=== PATIENT | male | born 1960 ===

== ENCOUNTER 2017-05-26 10:39 | Inpatient (IN) | payer OTHER ==
[2017-05-26 10:40] VITALS: BMI 28.3
--- NOTE | 2017-05-26 11:28 | C.PDOC ---
History Of Present Illness 56 year old male with PMHx of PE on coumadin presents to the ED for evaluation of right sided swelling for the past 3 days. Patient reports he had a kidney transplant 6 months ago after which which he had a PE. Patient denies any CP, SOB, weakness, numbness, urinary symptoms, back pain, headache, dizziness. Time Seen by Provider: 05/26/17 11:14 Chief Complaint (Nursing): Medical Clearance History Per: Patient History/Exam Limitations: no limitations Onset/Duration Of Symptoms: Days Current Symptoms Are (Timing): Still Present Recent travel outside of the [place]: No Additional History Per: Patient Past Medical History Reviewed: Historical Data, Nursing Documentation, Vital Signs Vital Signs: Last Vital Signs Temp 98.4 F 05/26/17 12:39 Pulse 77 05/26/17 12:39 Resp 18 05/26/17 12:39 BP 146/69 05/26/17 12:39 Pulse Ox 99 05/26/17 14:02 - Medical History PMH: Anemia, Depression, HTN, Hyperlipidemia, Hyperthyroidism, Hypothyroidism, Multiple Sclerosis, Peripheral Edema (before dialysis started), End Stage Renal Disease, Chronic Kidney Disease, Seizures Denies: Sexually Transmitted Disease Surgical History: Endoscopy - [facility] Procedures BYPASS R BRACH ART TO UP ARM VEIN W AUTOL VN, OPEN (01/14/16) DIALYSIS ARTERIOVENOSTOM (10/11/14) DILATION OF LEFT BASILIC VEIN, PERCUTANEOUS APPROACH (01/26/16) DILATION OF LEFT BRACHIAL ARTERY, PERCUTANEOUS APPROACH (01/14/16) HEMODIALYSIS (10/11/14) INSERTION OF INFUSION DEV INTO INF VENA CAVA, PERC APPROACH (01/26/16) INSERTION OF INFUSION DEV INTO SUP VENA CAVA, PERC APPROACH (03/18/16) PACKED CELL TRANSFUSION (10/11/14) PERFORMANCE OF URINARY FILTRATION, MULTIPLE (01/14/16) PERFORMANCE OF URINARY FILTRATION, SINGLE (03/18/16) REVISION OF AUTOL SUB IN UP VEIN, OPEN APPROACH (03/18/16) VACCINATION NEC (10/11/14) VENOUS CATHETERIZATION FOR RENAL DIALYSIS (10/11/14) Family History: States: Unknown Family Hx - Social History Hx Tobacco Use: No Hx Alcohol Use: No Hx Substance Use: No - Immunization History Hx Tetanus Toxoid Vaccination: No Hx Influenza Vaccination: No Hx Pneumococcal Vaccination: No Review Of Systems Constitutional: Positive for: Other (Bpdy swelling right side). Negative for: Fever, Chills Cardiovascular: Negative for: Chest Pain Respiratory: Negative for: Cough, Shortness of Breath Gastrointestinal: Negative for: Nausea, Vomiting, Abdominal Pain Genitourinary: Negative for: Dysuria, Hematuria Musculoskeletal: Negative for: Back Pain Skin: Negative for: Rash Neurological: Negative for: Weakness, Numbness, Headache Physical Exam - Physical Exam Appears: Non-toxic, No Acute Distress Skin: Normal Color, Warm, Dry Head: Atraumatic, Normacephalic Eye(s): bilateral: Normal Inspection Nose: No Discharge, No Deformity Oral Mucosa: Moist Neck: Normal ROM, Supple Chest: Symmetrical Cardiovascular: Rhythm Regular, No Murmur Respiratory: Normal Breath Sounds, No Rales, No Rhonchi, No Wheezing Gastrointestinal/Abdominal: Soft, No Tenderness, No Guarding, No Rebound Extremity: Normal ROM, No Tenderness, No Calf Tenderness, Capillary Refill (< 2 seconds), No Deformity, Swelling (+2 right leg pitting edema, +1 pitting edema right arm) Pulses: Left Radial: Normal, Right Radial: Normal, Left Dorsalis Pedis: Normal, Right Dorsalis Pedis: Normal Neurological/Psych: Oriented x3, Normal Speech, Normal Cognition Gait: Steady ED Course And Treatment - Laboratory Results Result Diagrams: 05/26/17 11:44 05/26/17 11:44 ECG: Interpreted By Me, Viewed By Me ECG Rhythm: Sinus Rhythm, R BBB (incomplete) Interpretation Of ECG: NSR 78 BPM with incomplete RBBB, normal axis, no ST or T wave abnormalities Rate From EC O2 Sat by Pulse Oximetry: 99 (On RA) Pulse Ox Interpretation: Normal - Radiology CXR: Viewed By Me, Read By Radiologist CXR Interpretation: Yes: Other (No acute findings identified.) Medical Decision Making Medical Decision Making: Impression : edema Plan: * EKG * Labs * CXR * UA * Venous Duplex Spoke with doctor at [facility] ([phone]) transplant center regarding the patient's case, the physician agreed with the work up will follow labs and see results. Spoke with the transplant center again and the doctor there agreed with the patient staying in the hospital, patient will be admitted under Dr. Lazaro Silva. Disposition Discussed With : Chidi Silva Doctor Will See Patient In The: Hospital Counseled Patient/Family Regarding: Studies Performed, Diagnosis - Disposition Disposition: HOSPITALIZED Disposition Time: 14:04 Condition: FAIR Forms: [facility] ([place]) - Clinical Impression Clinical Impression: Hyponatremia - Scribe Statement The provider has reviewed the documentation as recorded by the Scribe Remi Trevino All medical record entries made by the Scribe were at my direction and personally dictated by me. I have reviewed the chart and agree that the record accurately reflects my personal performance of the history, physical exam, medical decision making, and the department course for this patient. I have also personally directed, reviewed, and agree with the discharge instructions and disposition.
[2017-05-26 11:52] LABS: BASO % 0.4 % (0.0-2.0); EOS % 1.3 % (0.0-4.0); HEMOGLOBIN 10.3 g/dL (12.0-18.0); LYMPH # 0.6 K/uL (1.0-4.3); LYMPH % 15.3 % (20.0-40.0); MEAN CELL VOLUME 85.8 fL (80.0-94.0); MEAN CORPUSCULAR HEMOGLOBIN 31.1 pg (27.0-31.0); MEAN CORPUSCULAR HGB CONC 36.2 g/dL (33.0-37.0); MEAN PLATELET VOLUME 6.5 fL (7.2-11.7); MONO # 0.6 K/uL (0.0-0.8); MONO % 16.5 % (0.0-10.0); NEUT # 2.5 K/uL (1.8-7.0); NEUT % 66.5 % (50.0-75.0); NRBC % 0.1 % (0.0-2.0); RBC 3.33 Mil/uL (4.40-5.90); RED CELL DISTRIBUTION WIDTH 14.5 % (11.5-14.5); WHITE BLOOD COUNT 3.8 K/uL (4.8-10.8)
--- NOTE | 2017-05-26 11:59 | RAD ---
HISTORY: chest pain COMPARISON: Chest x-ray performed 01/14/16 TECHNIQUE: Chest PA and lateral FINDINGS: Examination limited by habitus. LUNGS: Biapical pleural thickening. No focal consolidation. Please note that chest x-ray has limited sensitivity for the detection of pulmonary masses. PLEURA: No significant pleural effusion identified. No definite pneumothorax . CARDIOVASCULAR: The cardiomediastinal silhouette appears within normal limits of size. OSSEOUS STRUCTURES: No acute osseous abnormality identified. VISUALIZED UPPER ABDOMEN: Unremarkable. OTHER FINDINGS: None. IMPRESSION: No acute findings identified. See above.
[2017-05-26 12:00] LABS: INR 1.5
[2017-05-26 12:12] LABS: B-TYPE NATRIURETIC PEPTIDE 683 pg/mL (0-900)
[2017-05-26 12:27] LABS: URINE BILIRUBIN NEGATIVE (NEGATIVE); URINE BLOOD NEGATIVE (NEGATIVE); URINE CLARITY Clear (Clear); URINE COLOR Yellow (YELLOW); URINE GLUCOSE (UA) NORMAL (Normal); URINE LEUKOCYTE ESTERASE TRACE Leu/uL (Negative); URINE NITRATE NEGATIVE (NEGATIVE); URINE PROTEIN 1+ mg/dL (NEGATIVE); URINE UROBILINOGEN NORMAL mg/dL (0.2-1.0)
[2017-05-26 12:56] LABS: ALB/GLOB RATIO 1.3 (1.0-2.1); ALBUMIN 4.2 g/dL (3.5-5.0); ALT/SGPT 56 U/L (21-72); AST/SGOT 40 U/L (17-59); BLOOD UREA NITROGEN 15 mg/dL (9-20); GFR AFRICAN-AMERICAN > 60; GFR NON-AFRICAN AMERICAN > 60
[2017-05-26] MEDS ORDERED: Sodium Chloride 0.9% 1,000 ML IV ONE (13:32)
--- NOTE | 2017-05-26 13:34 | VASCLAB ---
PROCEDURE: Lower Extremity Venous Duplex Exam. HISTORY: Pain / Swelling PRIORS: None. TECHNIQUE: Bilateral common femoral, femoral, popliteal and posterior tibial, peroneal and great saphenous veins were evaluated. Flow was assessed with color Doppler, compressibility, assessment of phasic flow and augmentation response. Report prepared by Mil Hartman, MAE, RVT FINDINGS: RIGHT: 1. Common Femoral Vein: 1.1. Compressibility - Fully compressible: Thrombus - None : Flow - Phasic: Augmentation -Normal: Reflux - None. 2. Femoral Vein: 2.1. Compressibility - Fully compressible: Thrombus - None : Flow - Phasic: Augmentation -Normal: Reflux - None. 3. Popliteal Vein: 3.1. Compressibility - Fully compressible: Thrombus - None : Flow - Phasic: Augmentation -Normal: Reflux - None. 4. Posterior Tibial Vein: 4.1. Compressibility - Fully compressible: Thrombus - None: Flow - Phasic: Augmentation -Normal: Reflux - None. 5. Peroneal Vein: 5.1. Compressibility - Fully compressible: Thrombus - None: Flow - Phasic: Augmentation -Normal: Reflux - None. 6. Great Saphenous Vein: 6.1. Compressibility - Fully compressible: Thrombus - None: Flow - Phasic: Augmentation - Normal: Reflux - None. LEFT: 1. Common Femoral Vein: 1.1. Compressibility - Fully compressible: Thrombus - None: Flow - Phasic: Augmentation -Normal: Reflux - None. 2. Femoral Vein: 2.1. Compressibility - Fully compressible: Thrombus - None: Flow - Phasic: Augmentation -Normal: Reflux - None. 3. Popliteal Vein: 3.1. Compressibility - Fully compressible: Thrombus - None : Flow - Phasic: Augmentation -Normal: Reflux - Severe. 4. Posterior Tibial Vein: 4.1. Compressibility - Fully compressible: Thrombus - None: Flow - Phasic: Augmentation -Normal: Reflux - None. 5. Peroneal Vein: 5.1. Compressibility - Fully compressible: Thrombus - None: Flow - Phasic: Augmentation -Normal: Reflux - Severe. 6. Great Saphenous Vein: 6.1. Compressibility - Fully compressible: Thrombus - None: Flow - Phasic: Augmentation - Normal: Reflux - None. OTHER FINDINGS: Right: None significant. Left: Valvular incompetence of the left popliteal and peroneal veins. IMPRESSION: Right: No evidence of deep or superficial vein thrombosis of the right lower extremity. Normal valve function noted of the right side. Left: No evidence of deep or superficial vein thrombosis of the left lower extremity.
[2017-05-26] MEDS ORDERED: Sodium Chloride 0.9% 1,000 ML ONE (13:41)
--- NOTE | 2017-05-26 16:42 | CP.PCM.HP ---
Past Patient History - Infectious Disease Hx of Infectious Diseases: None - Past Medical History & Family History Past Medical History?: Yes - Past Social History Smoking Status: Never Smoked - CARDIAC Hx Hypertension: Yes Hx Peripheral Edema: Yes (before dialysis started) - NEUROLOGICAL Hx Multiple Sclerosis: Yes Hx Seizures: Yes - RENAL Hx Chronic Kidney Disease: Yes - ENDOCRINE/METABOLIC Hx Hyperthyroidism: Yes Hx Hypothyroidism: Yes - HEMATOLOGICAL/ONCOLOGICAL Hx Anemia: Yes - INTEGUMENTARY Hx Dermatological Problems: Yes Other/Comment: FACIAL BUMPS UNSURE OF EXACT NAME. - MUSCULOSKELETAL/RHEUMATOLOGICAL Hx Musculoskeletal Disorders: Yes Hx Falls: Yes - GASTROINTESTINAL Hx Gastrointestinal Disorders: Yes - GENITOURINARY/GYNECOLOGICAL Hx Sexually Transmitted Disorders: No - PSYCHIATRIC Hx Depression: Yes Hx Substance Use: No - SURGICAL HISTORY Hx Surgeries: Yes Hx Arteriovenous Shunt: Yes (L arm, R arm) Hx Vascular Access Device: Yes (perma cath insertion) Other/Comment: LEFT WRIST UNSURE OF EXACT SURGERY-BELIEVES IT WAS FOR DIALYSIS BUT NEVER USED. - ANESTHESIA Hx Anesthesia: Yes Hx Anesthesia Reactions: No Hx Malignant Hyperthermia: No Meds Allergies/Adverse Reactions: Allergies Allergy/AdvReac Type Severity Reaction Status Date / Time No Known Allergies Allergy Verified 05/26/17 10:55 Physical Exam - Constitutional Appears: Well - Head Exam Head Exam: ATRAUMATIC, NORMAL INSPECTION, NORMOCEPHALIC - Eye Exam Eye Exam: EOMI, Normal appearance, PERRL Pupil Exam: NORMAL ACCOMODATION, PERRL - ENT Exam ENT Exam: Mucous Membranes Moist, Normal Exam - Neck Exam Neck exam: Positive for: Normal Inspection - Respiratory Exam Respiratory Exam: Decreased Breath Sounds - Cardiovascular Exam Cardiovascular Exam: REGULAR RHYTHM, +S1, +S2 - GI/Abdominal Exam GI & Abdominal Exam: Diminished Bowel Sounds, Soft - Rectal Exam Rectal Exam: Deferred Results - Vital Signs Recent Vital Signs: Last Vital Signs Temp 98.5 F 05/26/17 15:14 Pulse 76 05/26/17 15:14 Resp 18 05/26/17 15:14 BP 132/77 05/26/17 15:14 Pulse Ox 100 05/26/17 15:14 - Labs Result Diagrams: 05/26/17 11:44 05/26/17 11:44 Labs: Laboratory Results - last 24 hr 05/26/17 05/26/17 05/26/17 11:36 11:44 11:44 WBC 3.8 L RBC 3.33 L Hgb 10.3 L Hct 28.6 L MCV 85.8 D MCH 31.1 H MCHC 36.2 RDW 14.5 Plt Count 334 MPV 6.5 L Neut % (Auto) 66.5 Lymph % (Auto) 15.3 L [place] % (Auto) 16.5 H Eos % (Auto) 1.3 Baso % (Auto) 0.4 Neut # 2.5 Lymph # 0.6 L [place] # 0.6 Eos # 0.0 Baso # 0.0 PT 17.0 H INR 1.5 APTT 28 Sodium Potassium Chloride Carbon Dioxide Anion Gap BUN Creatinine Est GFR ( Amer) Est GFR (Non-Af Amer) Random Glucose Calcium Total Bilirubin AST ALT Alkaline Phosphatase Troponin I NT-Pro-B Natriuret Pep Total Protein Albumin Globulin Albumin/Globulin Ratio Urine Color Yellow Urine Clarity Clear Urine pH 5.0 Ur Specific [place] 1.021 Urine Protein 1+ H Urine Glucose (UA) Normal Urine Ketones Negative Urine Blood Negative Urine Nitrate Negative Urine Bilirubin Negative Urine Urobilinogen Normal Ur Leukocyte Esterase Trace Urine WBC (Auto) 5 Urine RBC (Auto) 1 Carbamazepine 05/26/17 05/26/17 11:44 14:33 WBC RBC Hgb Hct MCV MCH MCHC RDW Plt Count MPV Neut % (Auto) Lymph % (Auto) [place] % (Auto) Eos % (Auto) Baso % (Auto) Neut # Lymph # [place] # Eos # Baso # PT INR APTT Sodium 119 L* Potassium 4.2 Chloride 89 L Carbon Dioxide 22 Anion Gap 12 BUN 15 Creatinine 1.0 Est GFR ( Amer) > 60 Est GFR (Non-Af Amer) > 60 Random Glucose 91 Calcium 9.0 Total Bilirubin 0.6 AST 40 ALT 56 Alkaline Phosphatase 89 Troponin I < 0.0120 NT-Pro-B Natriuret Pep 683 Total Protein 7.3 Albumin 4.2 Globulin 3.1 Albumin/Globulin Ratio 1.3 Urine Color Urine Clarity Urine pH Ur Specific [place] Urine Protein Urine Glucose (UA) Urine Ketones Urine Blood Urine Nitrate Urine Bilirubin Urine Urobilinogen Ur Leukocyte Esterase Urine WBC (Auto) Urine RBC (Auto) Carbamazepine 7.1
[2017-05-26 19:43] LABS: OSMOLALITY,URINE 228 mosm/kg (300-1000)
--- NOTE | 2017-05-26 22:02 | CP.PCM.CON ---
History of Present Illness - History of Present Illness History of Present Illness: General Surgery Consult Note for Dr. Cook This is a 56M with ESRD s/p kidney transplant with right sided upper and lower extremity swelling for two weeks, denies pain, weakness or systemic symptoms. LE dupplex negative for clots. Review of Systems - Review of Systems All systems: reviewed and no additional remarkable complaints except Review of Systems: Right upper and lower extremity swelling, no weakness, or erythema Past Patient History - Infectious Disease Hx of Infectious Diseases: None - Past Medical History & Family History Past Medical History?: Yes - Past Social History Smoking Status: Never Smoked - CARDIAC Hx Hypertension: Yes Hx Peripheral Edema: Yes (before dialysis started) - NEUROLOGICAL Hx Multiple Sclerosis: Yes Hx Seizures: Yes - RENAL Hx Chronic Kidney Disease: Yes - ENDOCRINE/METABOLIC Hx Hyperthyroidism: Yes Hx Hypothyroidism: Yes - HEMATOLOGICAL/ONCOLOGICAL Hx Anemia: Yes - INTEGUMENTARY Hx Dermatological Problems: Yes Other/Comment: FACIAL BUMPS UNSURE OF EXACT NAME. - MUSCULOSKELETAL/RHEUMATOLOGICAL Hx Musculoskeletal Disorders: Yes Hx Falls: Yes - GASTROINTESTINAL Hx Gastrointestinal Disorders: Yes - GENITOURINARY/GYNECOLOGICAL Hx Sexually Transmitted Disorders: No - PSYCHIATRIC Hx Depression: Yes Hx Substance Use: No - SURGICAL HISTORY Hx Surgeries: Yes Hx Arteriovenous Shunt: Yes (L arm, R arm) Hx Vascular Access Device: Yes (perma cath insertion) Other/Comment: LEFT WRIST UNSURE OF EXACT SURGERY-BELIEVES IT WAS FOR DIALYSIS BUT NEVER USED. - ANESTHESIA Hx Anesthesia: Yes Hx Anesthesia Reactions: No Hx Malignant Hyperthermia: No Meds Allergies/Adverse Reactions: Allergies Allergy/AdvReac Type Severity Reaction Status Date / Time No Known Allergies Allergy Verified 05/26/17 10:55 - Medications Medications: Current Medications Amlodipine Besylate (Norvasc) 2.5 mg PO DAILY [facility] Carbamazepine (Tegretol) 200 mg PO QID [facility] Clopidogrel Bisulfate (Plavix) 75 mg PO DAILY [facility] Escitalopram Oxalate (Lexapro) 1 mg PO DAILY [facility] Home Med (Eslicarbazepine Acetate [Aptiom]) 400 mg PO BID [facility] Levetiracetam (Keppra) 750 mg PO BID [facility] Pantoprazole Sodium (Protonix Ec Tab) 40 mg PO DAILY [facility] Rosuvastatin Calcium (Crestor) 2.5 mg PO HS [facility] Sevelamer Carbonate (Renvela) 800 mg PO TID [facility] Sodium Chloride (Sodium Chloride Tab) 1 gm PO BID [facility] Vitamin B Complex/Vit C/Folic Acid (Nephro-Brigida) 1 tab PO DAILY [facility] Physical Exam - Constitutional Appears: Non-toxic - Head Exam Head Exam: ATRAUMATIC, NORMOCEPHALIC - Eye Exam Eye Exam: EOMI, Normal appearance - ENT Exam ENT Exam: Mucous Membranes Moist - Respiratory Exam Respiratory Exam: NORMAL BREATHING PATTERN - Cardiovascular Exam Cardiovascular Exam: +S1, +S2 - Extremities Exam Additional comments: right upper and lower extremity swelling palpable radial,popliteal, dp and tp bilaterally - Neurological Exam Neurological exam: Alert, Oriented x3 - Skin Skin Exam: Normal Color Results - Vital Signs Recent Vital Signs: Last Vital Signs Temp 98.1 F 05/26/17 18:10 Pulse 71 05/26/17 18:50 Resp 18 05/26/17 18:10 BP 138/72 05/26/17 18:10 Pulse Ox 99 05/26/17 18:10 - Labs Result Diagrams: 05/26/17 11:44 05/26/17 11:44 Labs: Laboratory Results - last 24 hr 05/26/17 05/26/17 05/26/17 11:36 11:44 11:44 WBC 3.8 L RBC 3.33 L Hgb 10.3 L Hct 28.6 L MCV 85.8 D MCH 31.1 H MCHC 36.2 RDW 14.5 Plt Count 334 MPV 6.5 L Neut % (Auto) 66.5 Lymph % (Auto) 15.3 L [place] % (Auto) 16.5 H Eos % (Auto) 1.3 Baso % (Auto) 0.4 Neut # 2.5 Lymph # 0.6 L [place] # 0.6 Eos # 0.0 Baso # 0.0 PT 17.0 H INR 1.5 APTT 28 Sodium Potassium Chloride Carbon Dioxide Anion Gap BUN Creatinine Est GFR ( Amer) Est GFR (Non-Af Amer) Random Glucose Serum Osmolality Calcium Total Bilirubin AST ALT Alkaline Phosphatase Troponin I NT-Pro-B Natriuret Pep Total Protein Albumin Globulin Albumin/Globulin Ratio Urine Color Yellow Urine Clarity Clear Urine pH 5.0 Ur Specific [place] 1.021 Urine Protein 1+ H Urine Glucose (UA) Normal Urine Ketones Negative Urine Blood Negative Urine Nitrate Negative Urine Bilirubin Negative Urine Urobilinogen Normal Ur Leukocyte Esterase Trace Urine WBC (Auto) 5 Urine RBC (Auto) 1 Urine Osmolality Ur Random Sodium Carbamazepine 05/26/17 05/26/17 05/26/17 11:44 14:33 19:39 WBC RBC Hgb Hct MCV MCH MCHC RDW Plt Count MPV Neut % (Auto) Lymph % (Auto) [place] % (Auto) Eos % (Auto) Baso % (Auto) Neut # Lymph # [place] # Eos # Baso # PT INR APTT Sodium 119 L* Potassium 4.2 Chloride 89 L Carbon Dioxide 22 Anion Gap 12 BUN 15 Creatinine 1.0 Est GFR ( Amer) > 60 Est GFR (Non-Af Amer) > 60 Random Glucose 91 Serum Osmolality Calcium 9.0 Total Bilirubin 0.6 AST 40 ALT 56 Alkaline Phosphatase 89 Troponin I < 0.0120 NT-Pro-B Natriuret Pep 683 Total Protein 7.3 Albumin 4.2 Globulin 3.1 Albumin/Globulin Ratio 1.3 Urine Color Urine Clarity Urine pH Ur Specific [place] Urine Protein Urine Glucose (UA) Urine Ketones Urine Blood Urine Nitrate Urine Bilirubin Urine Urobilinogen Ur Leukocyte Esterase Urine WBC (Auto) Urine RBC (Auto) Urine Osmolality 228 L Ur Random Sodium 59 Carbamazepine 7.1 05/26/17 19:45 WBC RBC Hgb Hct MCV MCH MCHC RDW Plt Count MPV Neut % (Auto) Lymph % (Auto) [place] % (Auto) Eos % (Auto) Baso % (Auto) Neut # Lymph # [place] # Eos # Baso # PT INR APTT Sodium Potassium Chloride Carbon Dioxide Anion Gap BUN Creatinine Est GFR ( Amer) Est GFR (Non-Af Amer) Random Glucose Serum Osmolality 278 Calcium Total Bilirubin AST ALT Alkaline Phosphatase Troponin I NT-Pro-B Natriuret Pep Total Protein Albumin Globulin Albumin/Globulin Ratio Urine Color Urine Clarity Urine pH Ur Specific [place] Urine Protein Urine Glucose (UA) Urine Ketones Urine Blood Urine Nitrate Urine Bilirubin Urine Urobilinogen Ur Leukocyte Esterase Urine WBC (Auto) Urine RBC (Auto) Urine Osmolality Ur Random Sodium Carbamazepine Assessment & Plan - Assessment and Plan (Free Text) Assessment: 56M with right sided swelling continue medical mangement per primary team will discuss with Dr. Joyce Sanchez PGY2
[2017-05-26] MEDS: Rosuvastatin Calcium 2.5 mg Tab PO SCH (22:15)
[2017-05-27 08:25] LABS: BASO % 0.5 % (0.0-2.0); EOS % 1.4 % (0.0-4.0); HEMOGLOBIN 10.9 g/dL (12.0-18.0); LYMPH # 0.3 K/uL (1.0-4.3); LYMPH % 10.7 % (20.0-40.0); MEAN CELL VOLUME 86.2 fL (80.0-94.0); MEAN CORPUSCULAR HEMOGLOBIN 30.8 pg (27.0-31.0); MEAN CORPUSCULAR HGB CONC 35.8 g/dL (33.0-37.0); MONO # 0.4 K/uL (0.0-0.8); MONO % 12.1 % (0.0-10.0); NEUT # 2.2 K/uL (1.8-7.0); NEUT % 75.3 % (50.0-75.0); RBC 3.54 Mil/uL (4.40-5.90); RED CELL DISTRIBUTION WIDTH 14.4 % (11.5-14.5); WHITE BLOOD COUNT 2.9 K/uL (4.8-10.8)
[2017-05-27 08:28] LABS: ALB/GLOB RATIO 1.4 (1.0-2.1); ALT/SGPT 53 U/L (21-72); AST/SGOT 39 U/L (17-59); BLOOD UREA NITROGEN 16 mg/dL (9-20); CALCIUM 9.1 mg/dl (8.6-10.4); GFR AFRICAN-AMERICAN > 60; GFR NON-AFRICAN AMERICAN > 60
[2017-05-27 08:50] VITALS: RESP 20
[2017-05-27] MEDS ORDERED: ESLICARBAZEPINE ACETATE 400 MG PO SCH (10:00)
[2017-05-27] MEDS ORDERED: [UNRECOGNIZED DRUG - REMARK] PO SCH (10:00)
--- NOTE | 2017-05-27 10:17 | CP.PCM.PN ---
Subjective - Date & Time of Evaluation Date of Evaluation: 05/27/17 Time of Evaluation: 10:15 - Subjective Subjective: Surgery Note for Dr. Cook Patient seen and examined at bedside. No acute event overnight. Patient only complaining of swelling. He states he has had swelling since Renal transplant. He denies pain. AVF access site has n issues. Denies pain/swelling/numbness/ tingling. Objective - Vital Signs/Intake and Output Vital Signs (last 24 hours): Temp Pulse Resp BP Pulse Ox 97.7 F 66 20 138/76 100 05/27/17 07:20 05/27/17 07:20 05/27/17 07:20 05/27/17 07:20 05/27/17 07:20 - Medications Medications: Current Medications Amlodipine Besylate (Norvasc) 2.5 mg PO DAILY [facility] Carbamazepine (Tegretol) 200 mg PO QID [facility] Last Admin: 05/26/17 22:15 Dose: 200 mg Clopidogrel Bisulfate (Plavix) 75 mg PO DAILY [facility] Escitalopram Oxalate (Lexapro) 1 mg PO DAILY [facility] Home Med (Eslicarbazepine Acetate [Aptiom]) 400 mg PO BID [facility] Levetiracetam (Keppra) 750 mg PO BID [facility] Pantoprazole Sodium (Protonix Ec Tab) 40 mg PO DAILY [facility] Rosuvastatin Calcium (Crestor) 2.5 mg PO HS [facility] Last Admin: 05/26/17 22:15 Dose: 2.5 mg Sevelamer Carbonate (Renvela) 800 mg PO TID [facility] Sodium Chloride (Sodium Chloride Tab) 1 gm PO BID [facility] Last Admin: 05/26/17 22:15 Dose: 1 gm Vitamin B Complex/Vit C/Folic Acid (Nephro-Brigida) 1 tab PO DAILY [facility] - Labs Labs: 05/27/17 08:08 05/27/17 07:58 PT 17.0 SECONDS (9.7-12.2) H 05/26/17 11:44 INR 1.5 05/26/17 11:44 APTT 28 SECONDS (21-34) 05/26/17 11:44 - Constitutional Appears: No Acute Distress - Head Exam Head Exam: ATRAUMATIC, NORMOCEPHALIC - Eye Exam Eye Exam: Normal appearance - ENT Exam ENT Exam: Mucous Membranes Moist - Cardiovascular Exam Cardiovascular Exam: REGULAR RHYTHM - GI/Abdominal Exam GI & Abdominal Exam: Soft, Normal Bowel Sounds. absent: Tenderness Additional comments: RLQ scar from renal transplant - Extremities Exam Additional comments: RLE swelling, nontender, no erythema RUE with mild swelling RUE AVF with good plapable thrill and audible bruit - Neurological Exam Neurological Exam: Alert, Awake, Oriented x3 - Psychiatric Exam Psychiatric exam: Normal Affect, Normal Mood - Skin Skin Exam: Dry, Normal Color, Warm Assessment and Plan - Assessment and Plan (Free Text) Plan: 56 M with RUE/RLE swelling -Asymptomatic besides swelling -Swelling likely secondary to lymphedema in lieu of transplant -Management as per primary -No surgical intervention needed at this time -Discussed with Dr. Joyce Piedra PGY1
[2017-05-27] MEDS: Pantoprazole 40 mg EC Tab PO SCH (10:21)
[2017-05-27] MEDS: Multivitamin Vitamin B Complex (Nephro-Vite) Tab PO SCH (10:27)
[2017-05-27] MEDS: EVEROLIMUS 0.5 MG PO SCH ×2 (12:23→21:14)
[2017-05-27] MEDS: ESLICARBAZEPINE 400 MG PO SCH ×2 (13:22→17:52)
--- NOTE | 2017-05-27 14:09 | CP.PCM.CON ---
History of Present Illness - History of Present Illness History of Present Illness: 56 y/o HM s/p living related renal transplant 11/17 without rejection. Presents with LE swelling and pronounced hyponatremia s/p recent DVT- on coumadin Dopplers - venous- now negative for DVT renal function stable PMH: RENAL TRANSPLANT LRRTP HTN RECENT DVT LE CMV + PROPHYLAXIS SEIZURE HX PSH: RENAL TRANSPLANT AV FISTULA X 2 Review of Systems - Review of Systems All systems: reviewed and no additional remarkable complaints except - Constitutional Constitutional: Lethargy, Weakness - Cardiovascular Cardiovascular: Leg Edema - Genitourinary Genitourinary: As Per HPI - Musculoskeletal Musculoskeletal: Muscle Cramps, Myalgias - Neurological Neurological: Weakness Past Patient History - Infectious Disease Hx of Infectious Diseases: None - Past Medical History & Family History Past Medical History?: Yes Pertinent Family History: FATHER WAS ON DIALYSIS - Past Social History Smoking Status: Never Smoked Chewing Tobacco Use: No Cigar Use: No - CARDIAC Hx Hypertension: Yes Hx Peripheral Edema: Yes (before dialysis started) - NEUROLOGICAL Hx Multiple Sclerosis: Yes Hx Seizures: Yes - RENAL Hx Chronic Kidney Disease: Yes - ENDOCRINE/METABOLIC Hx Hyperthyroidism: Yes Hx Hypothyroidism: Yes - HEMATOLOGICAL/ONCOLOGICAL Hx Anemia: Yes - INTEGUMENTARY Hx Dermatological Problems: Yes Other/Comment: FACIAL BUMPS UNSURE OF EXACT NAME. - MUSCULOSKELETAL/RHEUMATOLOGICAL Hx Musculoskeletal Disorders: Yes Hx Falls: Yes - GASTROINTESTINAL Hx Gastrointestinal Disorders: Yes - GENITOURINARY/GYNECOLOGICAL Hx Sexually Transmitted Disorders: No - PSYCHIATRIC Hx Depression: Yes Hx Substance Use: No - SURGICAL HISTORY Hx Surgeries: Yes Hx Arteriovenous Shunt: Yes (L arm, R arm) Hx Vascular Access Device: Yes (perma cath insertion) Other/Comment: LEFT WRIST UNSURE OF EXACT SURGERY-BELIEVES IT WAS FOR DIALYSIS BUT NEVER USED. - ANESTHESIA Hx Anesthesia: Yes Hx Anesthesia Reactions: No Hx Malignant Hyperthermia: No Meds Allergies/Adverse Reactions: Allergies Allergy/AdvReac Type Severity Reaction Status Date / Time No Known Allergies Allergy Verified 05/26/17 10:55 - Medications Medications: Current Medications Amlodipine Besylate (Norvasc) 2.5 mg PO DAILY [facility] Last Admin: 05/27/17 10:23 Dose: 2.5 mg Carbamazepine (Tegretol) 200 mg PO QID [facility] Last Admin: 05/27/17 13:20 Dose: 200 mg Clopidogrel Bisulfate (Plavix) 75 mg PO DAILY [facility] Last Admin: 05/27/17 10:23 Dose: 75 mg Escitalopram Oxalate (Lexapro) 1 mg PO DAILY [facility] Last Admin: 05/27/17 10:22 Dose: 1 mg Home Med (Patient's Own Medication) 6 tab PO Q12 [facility] Last Admin: 05/27/17 12:23 Dose: 6 tab Home Med (Patient's Own Medication) 1 tab PO TID [facility] Last Admin: 05/27/17 13:22 Dose: 1 tab Levetiracetam (Keppra) 750 mg PO TID [facility] Last Admin: 05/27/17 13:19 Dose: 750 mg Vfdda-9-Xyck Ethyl Esters (Lovaza) 2 gm PO BID [facility] Pantoprazole Sodium (Protonix Ec Tab) 40 mg PO DAILY [facility] Last Admin: 05/27/17 10:21 Dose: 40 mg Prednisone (Prednisone Tab) 5 mg PO DAILY [facility] Last Admin: 05/27/17 12:23 Dose: 5 mg Rosuvastatin Calcium (Crestor) 2.5 mg PO HS [facility] Last Admin: 05/26/17 22:15 Dose: 2.5 mg Sevelamer Carbonate (Renvela) 800 mg PO TID [facility] Last Admin: 05/27/17 13:20 Dose: 800 mg Sodium Chloride (Sodium Chloride Tab) 1 gm PO BID [facility] Last Admin: 05/27/17 10:22 Dose: 1 gm Tacrolimus (Prograf Cap) 3 mg PO Q12 [facility] Last Admin: 05/27/17 12:24 Dose: 3 mg Vitamin B Complex/Vit C/Folic Acid (Nephro-Brigida) 1 tab PO DAILY [facility] Last Admin: 05/27/17 10:27 Dose: 1 tab Physical Exam - Constitutional Appears: No Acute Distress, Chronically Ill - Head Exam Head Exam: ATRAUMATIC, NORMAL INSPECTION - Eye Exam Eye Exam: EOMI, Normal appearance - Neck Exam Neck exam: Positive for: Normal Inspection. Negative for: Tenderness - Respiratory Exam Respiratory Exam: Clear to Auscultation Bilateral, NORMAL BREATHING PATTERN - Cardiovascular Exam Cardiovascular Exam: REGULAR RHYTHM, +S1 - GI/Abdominal Exam GI & Abdominal Exam: Soft. absent: Tenderness - Extremities Exam Extremities exam: Positive for: pedal edema. Negative for: normal inspection, tenderness - Neurological Exam Neurological exam: Alert, CN II-XII Intact - Skin Skin Exam: Dry, Warm Results - Vital Signs Recent Vital Signs: Last Vital Signs Temp 97.7 F 05/27/17 07:20 Pulse 66 05/27/17 07:20 Resp 20 05/27/17 07:20 BP 138/76 05/27/17 07:20 Pulse Ox 100 05/27/17 07:20 - Labs Result Diagrams: 05/27/17 08:08 05/27/17 07:58 Labs: Laboratory Results - last 24 hr 05/26/17 05/26/17 05/26/17 14:33 19:39 19:45 WBC RBC Hgb Hct MCV MCH MCHC RDW Plt Count MPV Neut % (Auto) Lymph % (Auto) Mora % (Auto) Eos % (Auto) Baso % (Auto) Neut # Lymph # Mora # Eos # Baso # Sodium Potassium Chloride Carbon Dioxide Anion Gap BUN Creatinine Est GFR ( Amer) Est GFR (Non-Af Amer) Random Glucose Serum Osmolality 278 Calcium Total Bilirubin AST ALT Alkaline Phosphatase Total Protein Albumin Globulin Albumin/Globulin Ratio Urine Osmolality 228 L Ur Random Sodium 59 Carbamazepine 7.1 05/27/17 05/27/17 05/27/17 07:58 08:08 08:08 WBC 2.9 L RBC 3.54 L Hgb 10.9 L Hct 30.6 L MCV 86.2 MCH 30.8 MCHC 35.8 RDW 14.4 Plt Count 351 MPV 7.0 L Neut % (Auto) 75.3 H Lymph % (Auto) 10.7 L Mora % (Auto) 12.1 H Eos % (Auto) 1.4 Baso % (Auto) 0.5 Neut # 2.2 Lymph # 0.3 L Mora # 0.4 Eos # 0.0 Baso # 0.0 Sodium 124 L Potassium 4.1 Chloride 95 L Carbon Dioxide 23 Anion Gap 11 BUN 16 Creatinine 0.9 Est GFR ( Amer) > 60 Est GFR (Non-Af Amer) > 60 Random Glucose 85 Serum Osmolality 269 L Calcium 9.1 Total Bilirubin 0.7 AST 39 ALT 53 Alkaline Phosphatase 82 Total Protein 6.9 Albumin 4.0 Globulin 2.9 Albumin/Globulin Ratio 1.4 Urine Osmolality Ur Random Sodium Carbamazepine Assessment & Plan (1) Hyponatremia Status: Acute (2) Seizure Status: Acute - Assessment and Plan (Free Text) Plan: Parameters does not appear to be SIADH Carbamazepine can cause hyponatremia - usually SIADH effect Leukopenia- possibly from valcyte use Rec: check tacro level check with neuro if carbamazepine can be stopped recheck SIADH parameters
--- NOTE | 2017-05-27 16:05 | CARD ---
APPROVED REPORT EKG Measurement Heart [id number] <Conclusion> Normal sinus rhythm Incomplete right bundle branch block Borderline ECG
[2017-05-27 16:29] LABS: OSMOLALITY,URINE 324 mosm/kg (300-1000)
[2017-05-27 16:30] LABS: URIC ACID 2.9 mg/dL (3.5-8.5)
--- NOTE | 2017-05-27 16:47 | CP.PCM.PN ---
Subjective - Date & Time of Evaluation Date of Evaluation: 05/27/17 Time of Evaluation: 16:46 - Subjective Subjective: PT'S WARFARIN DOSE: 10 MG (2 TABS OF 10 MG PER PT) ON [id number]; 7.5 MG ON [id number]. Objective - Vital Signs/Intake and Output Vital Signs (last 24 hours): Temp Pulse Resp BP Pulse Ox 97.7 F 66 20 138/76 100 05/27/17 07:20 05/27/17 07:20 05/27/17 07:20 05/27/17 07:20 05/27/17 07:20 - Medications Medications: Current Medications Amlodipine Besylate (Norvasc) 2.5 mg PO DAILY [facility] Last Admin: 05/27/17 10:23 Dose: 2.5 mg Carbamazepine (Tegretol) 200 mg PO QID [facility] Last Admin: 05/27/17 13:20 Dose: 200 mg Clopidogrel Bisulfate (Plavix) 75 mg PO DAILY [facility] Last Admin: 05/27/17 10:23 Dose: 75 mg Escitalopram Oxalate (Lexapro) 1 mg PO DAILY [facility] Last Admin: 05/27/17 10:22 Dose: 1 mg Home Med (Patient's Own Medication) 6 tab PO Q12 [facility] Last Admin: 05/27/17 12:23 Dose: 6 tab Home Med (Patient's Own Medication) 1 tab PO TID [facility] Last Admin: 05/27/17 13:22 Dose: 1 tab Levetiracetam (Keppra) 750 mg PO TID [facility] Last Admin: 05/27/17 13:19 Dose: 750 mg Axsnb-9-Loev Ethyl Esters (Lovaza) 2 gm PO BID [facility] Pantoprazole Sodium (Protonix Ec Tab) 40 mg PO DAILY [facility] Last Admin: 05/27/17 10:21 Dose: 40 mg Prednisone (Prednisone Tab) 5 mg PO DAILY [facility] Last Admin: 05/27/17 12:23 Dose: 5 mg Rosuvastatin Calcium (Crestor) 2.5 mg PO HS [facility] Last Admin: 05/26/17 22:15 Dose: 2.5 mg Sevelamer Carbonate (Renvela) 800 mg PO TID [facility] Last Admin: 05/27/17 13:20 Dose: 800 mg Sodium Chloride (Sodium Chloride Tab) 1 gm PO BID [facility] Last Admin: 05/27/17 10:22 Dose: 1 gm Tacrolimus (Prograf Cap) 3 mg PO Q12 [facility] Last Admin: 05/27/17 12:24 Dose: 3 mg Vitamin B Complex/Vit C/Folic Acid (Nephro-Brigida) 1 tab PO DAILY [facility] Last Admin: 05/27/17 10:27 Dose: 1 tab - Labs Labs: 05/27/17 08:08 05/27/17 07:58 PT 23.0 SECONDS (9.7-12.2) H D 05/27/17 15:55 INR 2.0 D 05/27/17 15:55 APTT 28 SECONDS (21-34) 05/26/17 11:44
[2017-05-27 16:51] LABS: URINE BACTERIA RARE (<OCC); URINE BILIRUBIN NEGATIVE (NEGATIVE); URINE BLOOD NEGATIVE (NEGATIVE); URINE CLARITY Clear (Clear); URINE COLOR Yellow (YELLOW); URINE GLUCOSE (UA) NORMAL (Normal); URINE LEUKOCYTE ESTERASE NEG Leu/uL (Negative); URINE NITRATE NEGATIVE (NEGATIVE); URINE PROTEIN NEGATIVE (NEGATIVE); URINE UROBILINOGEN NORMAL mg/dL (0.2-1.0)
[2017-05-27] MEDS: Omega-3-Acid Ethyl Esters 1 GM Cap PO SCH (17:50)
--- NOTE | 2017-05-27 19:20 | CP.PCM.PN ---
Subjective - Date & Time of Evaluation Date of Evaluation: 05/27/17 Time of Evaluation: 10:00 - Subjective Subjective: clincally same Objective - Vital Signs/Intake and Output Vital Signs (last 24 hours): Temp Pulse Resp BP Pulse Ox 98.3 F 67 20 133/82 98 05/27/17 17:01 05/27/17 17:01 05/27/17 17:01 05/27/17 17:01 05/27/17 17:01 - Medications Medications: Current Medications Amlodipine Besylate (Norvasc) 2.5 mg PO DAILY [facility] Last Admin: 05/27/17 10:23 Dose: 2.5 mg Carbamazepine (Tegretol) 200 mg PO QID [facility] Last Admin: 05/27/17 17:51 Dose: 200 mg Clopidogrel Bisulfate (Plavix) 75 mg PO DAILY [facility] Last Admin: 05/27/17 10:23 Dose: 75 mg Escitalopram Oxalate (Lexapro) 1 mg PO DAILY [facility] Last Admin: 05/27/17 10:22 Dose: 1 mg Home Med (Patient's Own Medication) 6 tab PO Q12 [facility] Last Admin: 05/27/17 12:23 Dose: 6 tab Home Med (Patient's Own Medication) 1 tab PO TID [facility] Last Admin: 05/27/17 17:52 Dose: 1 tab Levetiracetam (Keppra) 750 mg PO TID [facility] Last Admin: 05/27/17 17:50 Dose: 750 mg Rgwfc-6-Rtex Ethyl Esters (Lovaza) 2 gm PO BID [facility] Last Admin: 05/27/17 17:50 Dose: 2 gm Pantoprazole Sodium (Protonix Ec Tab) 40 mg PO DAILY [facility] Last Admin: 05/27/17 10:21 Dose: 40 mg Prednisone (Prednisone Tab) 5 mg PO DAILY [facility] Last Admin: 05/27/17 12:23 Dose: 5 mg Rosuvastatin Calcium (Crestor) 2.5 mg PO HS [facility] Last Admin: 05/26/17 22:15 Dose: 2.5 mg Sevelamer Carbonate (Renvela) 800 mg PO TID [facility] Last Admin: 05/27/17 17:50 Dose: 800 mg Sodium Chloride (Sodium Chloride Tab) 1 gm PO BID [facility] Last Admin: 05/27/17 18:28 Dose: 1 gm Tacrolimus (Prograf Cap) 3 mg PO Q12 [facility] Last Admin: 05/27/17 12:24 Dose: 3 mg Vitamin B Complex/Vit C/Folic Acid (Nephro-Brigida) 1 tab PO DAILY [facility] Last Admin: 05/27/17 10:27 Dose: 1 tab - Labs Labs: 05/27/17 08:08 05/27/17 07:58 PT 23.0 SECONDS (9.7-12.2) H D 05/27/17 15:55 INR 2.0 D 05/27/17 15:55 APTT 28 SECONDS (21-34) 05/26/17 11:44
[2017-05-27] MEDS: Rosuvastatin Calcium 2.5 mg Tab PO SCH (21:13)
--- NOTE | 2017-05-27 22:12 | CP.PCM.CON ---
History of Present Illness - History of Present Illness History of Present Illness: 56 Male admitted with hyponatremia Denies chest pain and dyspnea Past Patient History - Infectious Disease Hx of Infectious Diseases: None - Past Medical History & Family History Past Medical History?: Yes - Past Social History Smoking Status: Never Smoked Chewing Tobacco Use: No Cigar Use: No - CARDIAC Hx Hypertension: Yes Hx Peripheral Edema: Yes (before dialysis started) - NEUROLOGICAL Hx Multiple Sclerosis: Yes Hx Seizures: Yes - RENAL Hx Chronic Kidney Disease: Yes - ENDOCRINE/METABOLIC Hx Hyperthyroidism: Yes Hx Hypothyroidism: Yes - HEMATOLOGICAL/ONCOLOGICAL Hx Anemia: Yes - INTEGUMENTARY Hx Dermatological Problems: Yes Other/Comment: FACIAL BUMPS UNSURE OF EXACT NAME. - MUSCULOSKELETAL/RHEUMATOLOGICAL Hx Musculoskeletal Disorders: Yes Hx Falls: Yes - GASTROINTESTINAL Hx Gastrointestinal Disorders: Yes - GENITOURINARY/GYNECOLOGICAL Hx Sexually Transmitted Disorders: No - PSYCHIATRIC Hx Depression: Yes Hx Substance Use: No - SURGICAL HISTORY Hx Surgeries: Yes Hx Arteriovenous Shunt: Yes (L arm, R arm) Hx Vascular Access Device: Yes (perma cath insertion) Other/Comment: LEFT WRIST UNSURE OF EXACT SURGERY-BELIEVES IT WAS FOR DIALYSIS BUT NEVER USED. - ANESTHESIA Hx Anesthesia: Yes Hx Anesthesia Reactions: No Hx Malignant Hyperthermia: No Meds Allergies/Adverse Reactions: Allergies Allergy/AdvReac Type Severity Reaction Status Date / Time No Known Allergies Allergy Verified 05/26/17 10:55 - Medications Medications: Current Medications Amlodipine Besylate (Norvasc) 2.5 mg PO DAILY [facility] Last Admin: 05/27/17 10:23 Dose: 2.5 mg Carbamazepine (Tegretol) 200 mg PO QID [facility] Last Admin: 05/27/17 21:13 Dose: 200 mg Clopidogrel Bisulfate (Plavix) 75 mg PO DAILY [facility] Last Admin: 05/27/17 10:23 Dose: 75 mg Escitalopram Oxalate (Lexapro) 1 mg PO DAILY [facility] Last Admin: 05/27/17 10:22 Dose: 1 mg Home Med (Patient's Own Medication) 6 tab PO Q12 [facility] Last Admin: 05/27/17 21:14 Dose: 6 tab Home Med (Patient's Own Medication) 1 tab PO TID [facility] Last Admin: 05/27/17 17:52 Dose: 1 tab Levetiracetam (Keppra) 750 mg PO TID [facility] Last Admin: 05/27/17 17:50 Dose: 750 mg Nkvfy-6-Ieae Ethyl Esters (Lovaza) 2 gm PO BID [facility] Last Admin: 05/27/17 17:50 Dose: 2 gm Pantoprazole Sodium (Protonix Ec Tab) 40 mg PO DAILY [facility] Last Admin: 05/27/17 10:21 Dose: 40 mg Prednisone (Prednisone Tab) 5 mg PO DAILY [facility] Last Admin: 05/27/17 12:23 Dose: 5 mg Rosuvastatin Calcium (Crestor) 2.5 mg PO HS [facility] Last Admin: 05/27/17 21:13 Dose: 2.5 mg Sevelamer Carbonate (Renvela) 800 mg PO TID [facility] Last Admin: 05/27/17 17:50 Dose: 800 mg Sodium Chloride (Sodium Chloride Tab) 1 gm PO BID [facility] Last Admin: 05/27/17 18:28 Dose: 1 gm Tacrolimus (Prograf Cap) 3 mg PO Q12 [facility] Last Admin: 05/27/17 21:13 Dose: 3 mg Vitamin B Complex/Vit C/Folic Acid (Nephro-Brigida) 1 tab PO DAILY [facility] Last Admin: 05/27/17 10:27 Dose: 1 tab Results - Vital Signs Recent Vital Signs: Last Vital Signs Temp 98.3 F 05/27/17 17:01 Pulse 67 05/27/17 17:01 Resp 20 05/27/17 17:01 BP 133/82 05/27/17 17:01 Pulse Ox 98 05/27/17 17:01 - Labs Result Diagrams: 05/27/17 08:08 05/27/17 07:58 Labs: Laboratory Results - last 24 hr 05/27/17 05/27/17 05/27/17 07:58 08:08 08:08 WBC 2.9 L RBC 3.54 L Hgb 10.9 L Hct 30.6 L MCV 86.2 MCH 30.8 MCHC 35.8 RDW 14.4 Plt Count 351 MPV 7.0 L Neut % (Auto) 75.3 H Lymph % (Auto) 10.7 L Parker % (Auto) 12.1 H Eos % (Auto) 1.4 Baso % (Auto) 0.5 Neut # 2.2 Lymph # 0.3 L Parker # 0.4 Eos # 0.0 Baso # 0.0 PT INR Sodium 124 L Potassium 4.1 Chloride 95 L Carbon Dioxide 23 Anion Gap 11 BUN 16 Creatinine 0.9 Est GFR ( Amer) > 60 Est GFR (Non-Af Amer) > 60 Random Glucose 85 Serum Osmolality 269 L Uric Acid 2.9 L Calcium 9.1 Total Bilirubin 0.7 AST 39 ALT 53 Alkaline Phosphatase 82 Total Protein 6.9 Albumin 4.0 Globulin 2.9 Albumin/Globulin Ratio 1.4 Urine Color Urine Clarity Urine pH Ur Specific [place] Urine Protein Urine Glucose (UA) Urine Ketones Urine Blood Urine Nitrate Urine Bilirubin Urine Urobilinogen Ur Leukocyte Esterase Urine WBC (Auto) Urine RBC (Auto) Urine Bacteria Urine Osmolality Ur Random Sodium 05/27/17 05/27/17 05/27/17 14:20 15:55 15:55 WBC RBC Hgb Hct MCV MCH MCHC RDW Plt Count MPV Neut % (Auto) Lymph % (Auto) Parker % (Auto) Eos % (Auto) Baso % (Auto) Neut # Lymph # Parker # Eos # Baso # PT 23.0 H D INR 2.0 D Sodium Potassium Chloride Carbon Dioxide Anion Gap BUN Creatinine Est GFR ( Amer) Est GFR (Non-Af Amer) Random Glucose Serum Osmolality Uric Acid Calcium Total Bilirubin AST ALT Alkaline Phosphatase Total Protein Albumin Globulin Albumin/Globulin Ratio Urine Color Urine Clarity Urine pH Ur Specific [place] Urine Protein Urine Glucose (UA) Urine Ketones Urine Blood Urine Nitrate Urine Bilirubin Urine Urobilinogen Ur Leukocyte Esterase Urine WBC (Auto) Urine RBC (Auto) Urine Bacteria Urine Osmolality 251 L 324 Ur Random Sodium 59 05/27/17 15:56 WBC RBC Hgb Hct MCV MCH MCHC RDW Plt Count MPV Neut % (Auto) Lymph % (Auto) Parker % (Auto) Eos % (Auto) Baso % (Auto) Neut # Lymph # Parker # Eos # Baso # PT INR Sodium Potassium Chloride Carbon Dioxide Anion Gap BUN Creatinine Est GFR ( Amer) Est GFR (Non-Af Amer) Random Glucose Serum Osmolality Uric Acid Calcium Total Bilirubin AST ALT Alkaline Phosphatase Total Protein Albumin Globulin Albumin/Globulin Ratio Urine Color Yellow Urine Clarity Clear Urine pH 6.0 Ur Specific [place] 1.009 Urine Protein Negative Urine Glucose (UA) Normal Urine Ketones Negative Urine Blood Negative Urine Nitrate Negative Urine Bilirubin Negative Urine Urobilinogen Normal Ur Leukocyte Esterase Neg Urine WBC (Auto) < 1 Urine RBC (Auto) < 1 Urine Bacteria Rare Urine Osmolality Ur Random Sodium
[2017-05-28 07:48] LABS: ALB/GLOB RATIO 1.3 (1.0-2.1); ALT/SGPT 53 U/L (21-72); AST/SGOT 41 U/L (17-59); BLOOD UREA NITROGEN 18 mg/dL (9-20); CALCIUM 9.1 mg/dl (8.6-10.4); GFR AFRICAN-AMERICAN > 60; GFR NON-AFRICAN AMERICAN > 60
[2017-05-28] MEDS: EVEROLIMUS 0.5 MG PO SCH ×2 (10:30→21:20)
[2017-05-28] MEDS: ESLICARBAZEPINE 400 MG PO SCH ×3 (10:31→17:46)
[2017-05-28] MEDS: Pantoprazole 40 mg EC Tab PO SCH (10:32)
[2017-05-28] MEDS: Omega-3-Acid Ethyl Esters 1 GM Cap PO SCH ×2 (10:32→17:45)
[2017-05-28] MEDS: Multivitamin Vitamin B Complex (Nephro-Vite) Tab PO SCH (10:32)
--- NOTE | 2017-05-28 11:27 | CP.PCM.PN ---
Subjective - Date & Time of Evaluation Date of Evaluation: 05/28/17 Time of Evaluation: 11:25 - Subjective Subjective: Feels better repeat parameters now consistent with SIADH Na better at 128- on NaCl tabs and fluid restriction Objective - Vital Signs/Intake and Output Vital Signs (last 24 hours): Temp Pulse Resp BP Pulse Ox 97.6 F 73 20 157/81 H 100 05/28/17 07:55 05/28/17 07:55 05/28/17 07:55 05/28/17 07:55 05/28/17 07:55 Intake and Output: 05/28/17 05/28/17 06:59 18:59 Intake Total 600 Balance 600 - Medications Medications: Current Medications Amlodipine Besylate (Norvasc) 2.5 mg PO DAILY [facility] Last Admin: 05/28/17 10:31 Dose: 2.5 mg Carbamazepine (Tegretol) 200 mg PO QID [facility] Last Admin: 05/28/17 10:31 Dose: 200 mg Clopidogrel Bisulfate (Plavix) 75 mg PO DAILY [facility] Last Admin: 05/28/17 10:33 Dose: 75 mg Escitalopram Oxalate (Lexapro) 10 mg PO DAILY [facility] Last Admin: 05/28/17 10:32 Dose: 10 mg Home Med (Patient's Own Medication) 6 tab PO Q12 [facility] Last Admin: 05/28/17 10:30 Dose: 6 tab Home Med (Patient's Own Medication) 1 tab PO TID [facility] Last Admin: 05/28/17 10:31 Dose: 1 tab Levetiracetam (Keppra) 750 mg PO TID [facility] Last Admin: 05/28/17 10:32 Dose: 750 mg Zoukw-1-Uocf Ethyl Esters (Lovaza) 2 gm PO BID [facility] Last Admin: 05/28/17 10:32 Dose: 2 gm Pantoprazole Sodium (Protonix Ec Tab) 40 mg PO DAILY [facility] Last Admin: 05/28/17 10:32 Dose: 40 mg Prednisone (Prednisone Tab) 5 mg PO DAILY [facility] Last Admin: 05/28/17 10:31 Dose: 5 mg Rosuvastatin Calcium (Crestor) 2.5 mg PO HS [facility] Last Admin: 05/27/17 21:13 Dose: 2.5 mg Sevelamer Carbonate (Renvela) 800 mg PO TID [facility] Last Admin: 05/28/17 10:32 Dose: 800 mg Sodium Chloride (Sodium Chloride Tab) 1 gm PO BID [facility] Last Admin: 05/28/17 10:32 Dose: 1 gm Tacrolimus (Prograf Cap) 3 mg PO Q12 [facility] Last Admin: 05/28/17 10:33 Dose: 3 mg Vitamin B Complex/Vit C/Folic Acid (Nephro-Brigida) 1 tab PO DAILY [facility] Last Admin: 05/28/17 10:32 Dose: 1 tab - Labs Labs: 05/27/17 08:08 05/28/17 07:25 PT 23.0 SECONDS (9.7-12.2) H D 05/27/17 15:55 INR 2.0 D 05/27/17 15:55 APTT 28 SECONDS (21-34) 05/26/17 11:44 - Constitutional Appears: No Acute Distress, Chronically Ill - Head Exam Head Exam: ATRAUMATIC, NORMAL INSPECTION - Eye Exam Eye Exam: EOMI, Normal appearance - Neck Exam Neck Exam: Normal Inspection. absent: Tenderness - Respiratory Exam Respiratory Exam: Clear to Ausculation Bilateral, NORMAL BREATHING PATTERN - Cardiovascular Exam Cardiovascular Exam: REGULAR RHYTHM, +S1 - GI/Abdominal Exam GI & Abdominal Exam: Soft. absent: Tenderness - Extremities Exam Extremities Exam: Normal Inspection. absent: Tenderness - Neurological Exam Neurological Exam: Alert. absent: CN II-XII Intact - Skin Skin Exam: Dry, Warm Assessment and Plan (1) Hyponatremia Status: Acute (2) Seizure Status: Acute (3) SIADH (syndrome of inappropriate ADH production) Status: Acute - Assessment and Plan (Free Text) Plan: continue same rx would consider changing tegretol- possible etiology of SIADH
--- NOTE | 2017-05-28 12:03 | CP.PCM.PN ---
Subjective - Date & Time of Evaluation Date of Evaluation: 05/28/17 Time of Evaluation: 10:40 - Subjective Subjective: clinically same Objective - Vital Signs/Intake and Output Vital Signs (last 24 hours): Temp Pulse Resp BP Pulse Ox 97.6 F 73 20 157/81 H 100 05/28/17 07:55 05/28/17 07:55 05/28/17 07:55 05/28/17 07:55 05/28/17 07:55 Intake and Output: 05/28/17 05/28/17 06:59 18:59 Intake Total 600 Balance 600 - Medications Medications: Current Medications Amlodipine Besylate (Norvasc) 2.5 mg PO DAILY [facility] Last Admin: 05/28/17 10:31 Dose: 2.5 mg Carbamazepine (Tegretol) 200 mg PO QID [facility] Last Admin: 05/28/17 10:31 Dose: 200 mg Clopidogrel Bisulfate (Plavix) 75 mg PO DAILY [facility] Last Admin: 05/28/17 10:33 Dose: 75 mg Escitalopram Oxalate (Lexapro) 10 mg PO DAILY [facility] Last Admin: 05/28/17 10:32 Dose: 10 mg Home Med (Patient's Own Medication) 6 tab PO Q12 [facility] Last Admin: 05/28/17 10:30 Dose: 6 tab Home Med (Patient's Own Medication) 1 tab PO TID [facility] Last Admin: 05/28/17 10:31 Dose: 1 tab Levetiracetam (Keppra) 750 mg PO TID [facility] Last Admin: 05/28/17 10:32 Dose: 750 mg Argsw-9-Rnep Ethyl Esters (Lovaza) 2 gm PO BID [facility] Last Admin: 05/28/17 10:32 Dose: 2 gm Pantoprazole Sodium (Protonix Ec Tab) 40 mg PO DAILY [facility] Last Admin: 05/28/17 10:32 Dose: 40 mg Prednisone (Prednisone Tab) 5 mg PO DAILY [facility] Last Admin: 05/28/17 10:31 Dose: 5 mg Rosuvastatin Calcium (Crestor) 2.5 mg PO HS [facility] Last Admin: 05/27/17 21:13 Dose: 2.5 mg Sevelamer Carbonate (Renvela) 800 mg PO TID [facility] Last Admin: 05/28/17 10:32 Dose: 800 mg Sodium Chloride (Sodium Chloride Tab) 1 gm PO BID [facility] Last Admin: 05/28/17 10:32 Dose: 1 gm Tacrolimus (Prograf Cap) 3 mg PO Q12 [facility] Last Admin: 05/28/17 10:33 Dose: 3 mg Vitamin B Complex/Vit C/Folic Acid (Nephro-Brigida) 1 tab PO DAILY [facility] Last Admin: 05/28/17 10:32 Dose: 1 tab - Labs Labs: 05/27/17 08:08 05/28/17 07:25 PT 23.0 SECONDS (9.7-12.2) H D 05/27/17 15:55 INR 2.0 D 05/27/17 15:55 APTT 28 SECONDS (21-34) 05/26/17 11:44 - Constitutional Appears: Well - Eye Exam Eye Exam: EOMI, Normal appearance, PERRL Pupil Exam: NORMAL ACCOMODATION, PERRL - ENT Exam ENT Exam: Mucous Membranes Moist, Normal Exam - Neck Exam Neck Exam: Full ROM, Normal Inspection. absent: Lymphadenopathy - Respiratory Exam Respiratory Exam: Decreased Breath Sounds - Cardiovascular Exam Cardiovascular Exam: REGULAR RHYTHM, +S1, +S2 - GI/Abdominal Exam GI & Abdominal Exam: Soft, Diminished Bowel Sounds - Rectal Exam Rectal Exam: Deferred
[2017-05-28 17:09] LABS: INR 2.3
[2017-05-28] MEDS: Rosuvastatin Calcium 2.5 mg Tab PO SCH (21:21)
--- NOTE | 2017-05-28 22:06 | CP.PCM.PN ---
Subjective - Date & Time of Evaluation Date of Evaluation: 05/28/17 Time of Evaluation: 11:30 - Subjective Subjective: Patient seen and evaluated Denies chest pain and dyspnea Hyponatremia improving Objective - Vital Signs/Intake and Output Vital Signs (last 24 hours): Temp Pulse Resp BP Pulse Ox 97 F L 73 20 151/84 H 98 05/28/17 16:43 05/28/17 16:43 05/28/17 16:43 05/28/17 16:43 05/28/17 16:43 - Medications Medications: Current Medications Amlodipine Besylate (Norvasc) 2.5 mg PO DAILY [facility] Last Admin: 05/28/17 10:31 Dose: 2.5 mg Carbamazepine (Tegretol) 200 mg PO QID [facility] Last Admin: 05/28/17 21:21 Dose: 200 mg Clopidogrel Bisulfate (Plavix) 75 mg PO DAILY [facility] Last Admin: 05/28/17 10:33 Dose: 75 mg Escitalopram Oxalate (Lexapro) 10 mg PO DAILY [facility] Last Admin: 05/28/17 10:32 Dose: 10 mg Home Med (Patient's Own Medication) 6 tab PO Q12 [facility] Last Admin: 05/28/17 21:20 Dose: 6 tab Home Med (Patient's Own Medication) 1 tab PO TID [facility] Last Admin: 05/28/17 17:46 Dose: 1 tab Levetiracetam (Keppra) 750 mg PO TID [facility] Last Admin: 05/28/17 17:45 Dose: 750 mg Hgyin-7-Cyar Ethyl Esters (Lovaza) 2 gm PO BID [facility] Last Admin: 05/28/17 17:45 Dose: 2 gm Pantoprazole Sodium (Protonix Ec Tab) 40 mg PO DAILY [facility] Last Admin: 05/28/17 10:32 Dose: 40 mg Prednisone (Prednisone Tab) 5 mg PO DAILY [facility] Last Admin: 05/28/17 10:31 Dose: 5 mg Rosuvastatin Calcium (Crestor) 2.5 mg PO HS [facility] Last Admin: 05/28/17 21:21 Dose: 2.5 mg Sevelamer Carbonate (Renvela) 800 mg PO TID [facility] Last Admin: 05/28/17 17:45 Dose: 800 mg Sodium Chloride (Sodium Chloride Tab) 1 gm PO BID [facility] Last Admin: 05/28/17 17:45 Dose: 1 gm Tacrolimus (Prograf Cap) 3 mg PO Q12 [facility] Last Admin: 05/28/17 21:21 Dose: 3 mg Vitamin B Complex/Vit C/Folic Acid (Nephro-Brigida) 1 tab PO DAILY [facility] Last Admin: 05/28/17 10:32 Dose: 1 tab - Labs Labs: 05/27/17 08:08 05/28/17 07:25 PT 27.0 SECONDS (9.7-12.2) H 05/28/17 16:56 INR 2.3 05/28/17 16:56 APTT 28 SECONDS (21-34) 05/26/17 11:44
[2017-05-29 07:38] LABS: INR 2.6; PROTHROMBIN TIME 30.2 SECONDS (9.7-12.2)
[2017-05-29 08:13] VITALS: BP 142/82; PULSE 72; TEMP 97.8; O2SAT 98
[2017-05-29] MEDS: Multivitamin Vitamin B Complex (Nephro-Vite) Tab PO SCH (10:00)
[2017-05-29] MEDS: Pantoprazole 40 mg EC Tab PO SCH (10:00)
[2017-05-29] MEDS: Omega-3-Acid Ethyl Esters 1 GM Cap PO SCH (10:01)
[2017-05-29] MEDS: ESLICARBAZEPINE 400 MG PO SCH ×2 (10:02→13:41)
[2017-05-29] MEDS: EVEROLIMUS 0.5 MG PO SCH (10:02)
[2017-05-29 11:44] LABS: ALB/GLOB RATIO 1.4 (1.0-2.1); ALBUMIN 3.9 g/dL (3.5-5.0); ALT/SGPT 45 U/L (21-72); AST/SGOT 32 U/L (17-59); BLOOD UREA NITROGEN 18 mg/dL (9-20); CALCIUM 9.1 mg/dl (8.6-10.4); GFR AFRICAN-AMERICAN > 60; GFR NON-AFRICAN AMERICAN > 60
[2017-05-29 12:15] LABS: BASO % 0.3 % (0.0-2.0); EOS # 0.1 K/uL (0.0-0.7); EOS % 2.3 % (0.0-4.0); LYMPH # 0.6 K/uL (1.0-4.3); LYMPH % 12.8 % (20.0-40.0); MEAN CELL VOLUME 87.4 fL (80.0-94.0); MEAN CORPUSCULAR HEMOGLOBIN 31.4 pg (27.0-31.0); MEAN CORPUSCULAR HGB CONC 35.9 g/dL (33.0-37.0); MEAN PLATELET VOLUME 6.7 fL (7.2-11.7); MONO # 0.3 K/uL (0.0-0.8); MONO % 6.4 % (0.0-10.0); NEUT # 3.4 K/uL (1.8-7.0); NEUT % 78.2 % (50.0-75.0); RBC 3.5 Mil/uL (4.40-5.90); RED CELL DISTRIBUTION WIDTH 14.4 % (11.5-14.5)
[2017-05-29 12:21] LABS: WHITE BLOOD COUNT 4.4 K/uL (4.8-10.8)
--- NOTE | 2017-05-29 14:13 | CP.PCM.PN ---
Subjective - Date & Time of Evaluation Date of Evaluation: 05/29/17 Time of Evaluation: 14:13 - Subjective Subjective: PT SEEN AND CLEARED FOR D/C PER DR. HUGHES. PT ALSO SEEN BY CARDIOLOGY WHO CLEARED PT; PULMONARY WHO CLEARED PT WELL (AFTER CT SINUSES WERE DONE----SEE OFFICIAL REPORT). RX GIVEN FOR ABX FOR SINUSITIS. PT TO F/U WITH Guerda HUGHES IN THE OFFICE SCHEDULE FOR NEXT WEEK. DISCUSSED AT LENGTH D/C PLAN AND RX. PT VERBALIZES UNDERSTANDING. NO FURTHER ORDERS. Objective - Vital Signs/Intake and Output Vital Signs (last 24 hours): Temp Pulse Resp BP Pulse Ox 97.8 F 72 20 142/82 98 05/29/17 08:12 05/29/17 08:12 05/29/17 08:12 05/29/17 08:12 05/29/17 08:12 Intake and Output: 05/29/17 05/29/17 06:59 18:59 Intake Total 900 Balance 900 - Medications Medications: Current Medications Amlodipine Besylate (Norvasc) 2.5 mg PO DAILY [facility] Last Admin: 05/29/17 10:00 Dose: 2.5 mg Carbamazepine (Tegretol) 200 mg PO QID [facility] Last Admin: 05/29/17 13:41 Dose: 200 mg Clopidogrel Bisulfate (Plavix) 75 mg PO DAILY [facility] Last Admin: 05/29/17 10:00 Dose: 75 mg Escitalopram Oxalate (Lexapro) 10 mg PO DAILY [facility] Last Admin: 05/29/17 10:00 Dose: 10 mg Home Med (Patient's Own Medication) 6 tab PO Q12 [facility] Last Admin: 05/29/17 10:02 Dose: 6 tab Home Med (Patient's Own Medication) 1 tab PO TID [facility] Last Admin: 05/29/17 13:41 Dose: 1 tab Levetiracetam (Keppra) 750 mg PO TID [facility] Last Admin: 05/29/17 13:41 Dose: 750 mg Oriew-7-Yduh Ethyl Esters (Lovaza) 2 gm PO BID [facility] Last Admin: 05/29/17 10:01 Dose: 2 gm Pantoprazole Sodium (Protonix Ec Tab) 40 mg PO DAILY [facility] Last Admin: 05/29/17 10:00 Dose: 40 mg Prednisone (Prednisone Tab) 5 mg PO DAILY [facility] Last Admin: 05/29/17 10:00 Dose: 5 mg Rosuvastatin Calcium (Crestor) 2.5 mg PO HS [facility] Last Admin: 05/28/17 21:21 Dose: 2.5 mg Sevelamer Carbonate (Renvela) 800 mg PO TID [facility] Last Admin: 05/29/17 13:41 Dose: 800 mg Sodium Chloride (Sodium Chloride Tab) 1 gm PO BID [facility] Last Admin: 05/29/17 10:01 Dose: 1 gm Tacrolimus (Prograf Cap) 3 mg PO Q12 [facility] Last Admin: 05/29/17 10:02 Dose: 3 mg Vitamin B Complex/Vit C/Folic Acid (Nephro-Brigida) 1 tab PO DAILY [facility] Last Admin: 05/29/17 10:00 Dose: 1 tab - Labs Labs: 05/29/17 11:16 05/29/17 11:16 PT 30.2 SECONDS (9.7-12.2) H* 05/29/17 07:14 INR 2.6 05/29/17 07:14 APTT 28 SECONDS (21-34) 05/26/17 11:44
--- NOTE | 2017-05-29 14:41 | CP.PCM.PN ---
Subjective - Date & Time of Evaluation Date of Evaluation: 05/29/17 Time of Evaluation: 14:39 - Subjective Subjective: Alert; NAD No other complaint Na-126 despite fluid restiction possible discharge being discussed would stop tegretol- likely etiology of SIADH Objective - Vital Signs/Intake and Output Vital Signs (last 24 hours): Temp Pulse Resp BP Pulse Ox 97.8 F 72 20 142/82 98 05/29/17 08:12 05/29/17 08:12 05/29/17 08:12 05/29/17 08:12 05/29/17 08:12 Intake and Output: 05/29/17 05/29/17 06:59 18:59 Intake Total 900 Balance 900 - Medications Medications: Current Medications Amlodipine Besylate (Norvasc) 2.5 mg PO DAILY [facility] Last Admin: 05/29/17 10:00 Dose: 2.5 mg Carbamazepine (Tegretol) 200 mg PO QID [facility] Last Admin: 05/29/17 13:41 Dose: 200 mg Clopidogrel Bisulfate (Plavix) 75 mg PO DAILY [facility] Last Admin: 05/29/17 10:00 Dose: 75 mg Escitalopram Oxalate (Lexapro) 10 mg PO DAILY [facility] Last Admin: 05/29/17 10:00 Dose: 10 mg Home Med (Patient's Own Medication) 6 tab PO Q12 [facility] Last Admin: 05/29/17 10:02 Dose: 6 tab Home Med (Patient's Own Medication) 1 tab PO TID [facility] Last Admin: 05/29/17 13:41 Dose: 1 tab Levetiracetam (Keppra) 750 mg PO TID [facility] Last Admin: 05/29/17 13:41 Dose: 750 mg Mtpeh-7-Wprp Ethyl Esters (Lovaza) 2 gm PO BID [facility] Last Admin: 05/29/17 10:01 Dose: 2 gm Pantoprazole Sodium (Protonix Ec Tab) 40 mg PO DAILY [facility] Last Admin: 05/29/17 10:00 Dose: 40 mg Prednisone (Prednisone Tab) 5 mg PO DAILY [facility] Last Admin: 05/29/17 10:00 Dose: 5 mg Rosuvastatin Calcium (Crestor) 2.5 mg PO HS [facility] Last Admin: 05/28/17 21:21 Dose: 2.5 mg Sevelamer Carbonate (Renvela) 800 mg PO TID [facility] Last Admin: 05/29/17 13:41 Dose: 800 mg Sodium Chloride (Sodium Chloride Tab) 1 gm PO BID [facility] Last Admin: 05/29/17 10:01 Dose: 1 gm Tacrolimus (Prograf Cap) 3 mg PO Q12 [facility] Last Admin: 05/29/17 10:02 Dose: 3 mg Vitamin B Complex/Vit C/Folic Acid (Nephro-Brigida) 1 tab PO DAILY [facility] Last Admin: 05/29/17 10:00 Dose: 1 tab - Labs Labs: 05/29/17 11:16 05/29/17 11:16 PT 30.2 SECONDS (9.7-12.2) H* 05/29/17 07:14 INR 2.6 05/29/17 07:14 APTT 28 SECONDS (21-34) 05/26/17 11:44 - Constitutional Appears: No Acute Distress, Chronically Ill - Head Exam Head Exam: ATRAUMATIC, NORMAL INSPECTION - Eye Exam Eye Exam: EOMI, Normal appearance - Neck Exam Neck Exam: Normal Inspection. absent: Tenderness - Respiratory Exam Respiratory Exam: Clear to Ausculation Bilateral, NORMAL BREATHING PATTERN - Cardiovascular Exam Cardiovascular Exam: REGULAR RHYTHM, +S1 - GI/Abdominal Exam GI & Abdominal Exam: Soft. absent: Tenderness - Extremities Exam Extremities Exam: Normal Inspection. absent: Tenderness - Neurological Exam Neurological Exam: Alert, CN II-XII Intact - Skin Skin Exam: Dry, Warm Assessment and Plan (1) Hyponatremia Status: Acute (2) Seizure Status: Acute (3) SIADH (syndrome of inappropriate ADH production) Status: Acute - Assessment and Plan (Free Text) Plan: fluid restriction consider stopping tegretol
[2017-05-29] MEDS ORDERED: Digoxin 500 mcg/2ml (0.5 mg/2ml) Inj ONE ×2 (16:16→16:20)
== END 2017-05-29 16:40 | disposition home or self-care (01) | DRG 643 ==
LOC: C.ER 10:39 → C.9E 14:03 → C.5S 17:51
PROVIDERS: ADMIT Internal Medicine Nephrology; ATTEND Internal Medicine Nephrology
DX: E22.2 Syndrome of inappropriate secretion of antidiuretic hormone (principal); I26.99 Other pulmonary embolism without acute cor pulmonale; N18.6 End stage renal disease; I12.0 Hypertensive chronic kidney disease with stage 5 chronic kidney disease or end stage renal disease; Z94.0 Kidney transplant status; T42.1X5A Adverse effect of iminostilbenes, initial encounter; D70.8 Other neutropenia; E03.9 Hypothyroidism, unspecified; G35 Multiple sclerosis; E05.90 Thyrotoxicosis, unspecified without thyrotoxic crisis or storm; Z79.01 Long term (current) use of anticoagulants; R56.9 Unspecified convulsions; T37.5X5A Adverse effect of antiviral drugs, initial encounter; Z99.2 Dependence on renal dialysis

== ENCOUNTER 2017-06-01 12:15 | Emergency (ER) | payer OTHER ==
[2017-06-01 12:15] VITALS: BMI 28.3
[2017-06-01 14:13] LABS: BASO % 0.6 % (0.0-2.0); EOS % 0.6 % (0.0-4.0); HEMOGLOBIN 11.5 g/dL (12.0-18.0); LYMPH # 0.5 K/uL (1.0-4.3); LYMPH % 7.1 % (20.0-40.0); MEAN CORPUSCULAR HEMOGLOBIN 31.4 pg (27.0-31.0); MEAN CORPUSCULAR HGB CONC 35.7 g/dL (33.0-37.0); MEAN PLATELET VOLUME 6.4 fL (7.2-11.7); MONO # 0.3 K/uL (0.0-0.8); MONO % 4.7 % (0.0-10.0); NEUT # 5.8 K/uL (1.8-7.0); PLATELET COUNT 388 K/uL (130-400); RBC 3.66 Mil/uL (4.40-5.90); RED CELL DISTRIBUTION WIDTH 14.8 % (11.5-14.5); WHITE BLOOD COUNT 6.7 K/uL (4.8-10.8)
[2017-06-01 14:21] LABS: URINE BILIRUBIN NEGATIVE (NEGATIVE); URINE BLOOD NEGATIVE (NEGATIVE); URINE CLARITY Clear (Clear); URINE COLOR Straw (YELLOW); URINE GLUCOSE (UA) NORMAL (Normal); URINE LEUKOCYTE ESTERASE NEG Leu/uL (Negative); URINE NITRATE NEGATIVE (NEGATIVE); URINE PROTEIN NEGATIVE (NEGATIVE); URINE UROBILINOGEN NORMAL mg/dL (0.2-1.0)
[2017-06-01 14:47] LABS: ALB/GLOB RATIO 1.3 (1.0-2.1); ALBUMIN 4.8 g/dL (3.5-5.0); ALT/SGPT 49 U/L (21-72); AST/SGOT 55 U/L (17-59); BLOOD UREA NITROGEN 19 mg/dL (9-20); CALCIUM 9.5 mg/dl (8.6-10.4); GFR AFRICAN-AMERICAN > 60; GFR NON-AFRICAN AMERICAN > 60
--- NOTE | 2017-06-01 15:06 | C.PDOC ---
History Of Present Illness 56 y/o male with hx of HTN and kidney transplant 6 months prior. Patient presented c/o swelling to right arm and leg. He was recently discharged from for same complaint. Denies CP, no SOB, normal urine output. Old chart reviewed, patient seen by nephrologyst, Dr. Navas. Recommended he stop the Tegretol he takes for seizure. Evaluated for SIDH upon last admission. Time Seen by Provider: 06/01/17 13:23 Chief Complaint (Nursing): High Blood Pressure Past Medical History Vital Signs: Last Vital Signs Temp 98.3 F 06/01/17 16:03 Pulse 96 H 06/01/17 16:03 Resp 20 06/01/17 16:03 BP 179/86 H 06/01/17 16:03 Pulse Ox 100 06/01/17 16:03 - Medical History PMH: Anemia, Depression, HTN, Hyperlipidemia, Hyperthyroidism, Hypothyroidism, Multiple Sclerosis, Peripheral Edema (before dialysis started), End Stage Renal Disease, Chronic Kidney Disease, Seizures Denies: Sexually Transmitted Disease Surgical History: Endoscopy - [facility] Procedures BYPASS R BRACH ART TO UP ARM VEIN W AUTOL VN, OPEN (01/14/16) DIALYSIS ARTERIOVENOSTOM (10/11/14) DILATION OF LEFT BASILIC VEIN, PERCUTANEOUS APPROACH (01/26/16) DILATION OF LEFT BRACHIAL ARTERY, PERCUTANEOUS APPROACH (01/14/16) HEMODIALYSIS (10/11/14) INSERTION OF INFUSION DEV INTO INF VENA CAVA, PERC APPROACH (01/26/16) INSERTION OF INFUSION DEV INTO SUP VENA CAVA, PERC APPROACH (03/18/16) PACKED CELL TRANSFUSION (10/11/14) PERFORMANCE OF URINARY FILTRATION, MULTIPLE (01/14/16) PERFORMANCE OF URINARY FILTRATION, SINGLE (03/18/16) REVISION OF AUTOL SUB IN UP VEIN, OPEN APPROACH (03/18/16) VACCINATION NEC (10/11/14) VENOUS CATHETERIZATION FOR RENAL DIALYSIS (10/11/14) Family History: States: Unknown Family Hx - Social History Hx Tobacco Use: No Hx Alcohol Use: No Hx Substance Use: No - Immunization History Hx Tetanus Toxoid Vaccination: No Hx Influenza Vaccination: No Hx Pneumococcal Vaccination: No Review Of Systems Constitutional: Negative for: Fever, Chills Cardiovascular: Negative for: Chest Pain Respiratory: Negative for: Cough, Shortness of Breath Gastrointestinal: Negative for: Nausea, Vomiting, Abdominal Pain Neurological: Negative for: Weakness, Numbness Physical Exam - Physical Exam Appears: Non-toxic, No Acute Distress Skin: Normal Color Head: Atraumatic Neck: Normal Respiratory: Normal Breath Sounds Gastrointestinal/Abdominal: Normal Exam Extremity: Other (edema to right arm and leg. AV shunt on right arm with bruit. ) ED Course And Treatment - Laboratory Results Result Diagrams: 06/01/17 14:09 06/01/17 14:09 O2 Sat by Pulse Oximetry: 184 Medical Decision Making Medical Decision Making: Discussed with Dr. Navas. patient had followed up with PMD. Stopped the Tegretol and had f/u with his renal transplant team in [address] bustos from renal transplant team, agreed patient can be d/ jonh and will f/u Disposition Discussed With Dr.: Jose Luis Navas Counseled Patient/Family Regarding: Studies Performed, Diagnosis, Need For Followup - Disposition Disposition: HOME/ ROUTINE Disposition Time: 15:04 Condition: STABLE Additional Instructions: Porfavor siga con los docteres de transplante en [facility]. Instructions: Hyponatremia (ED) Forms: Gen Discharge Inst Somali, Work Excuse - POA Present On Arrival: None - Clinical Impression Clinical Impression: Hyponatremia, Edema
[2017-06-01 15:27] LABS: BANDS 2 % (0-2); EOSINOPHIL 1 % (0-4); LYMPHOCYTE 4 % (20-40); MONOCYTE 4 % (0-10); NEUTROPHIL 89 % (50-75); TOTAL CELLS COUNTED 100
[2017-06-01 15:28] LABS: HYPOCHROMIC SLIGHT; PLATELET ESTIMATE NORMAL (NORMAL); POLYCHROMIC SLIGHT
[2017-06-01 15:29] LABS: BURR CELLS SLIGHT; MICROCYTOSIS SLIGHT; OVALOCYTES SLIGHT
[2017-06-01 16:04] VITALS: BP 179/86; PULSE 96; RESP 20; TEMP 98.3
[2017-06-03 11:33] VITALS: O2SAT 184
== END 2017-06-01 16:02 | disposition home or self-care (01) ==
LOC: C.ER 12:15
DX: E87.1 Hypo-osmolality and hyponatremia (principal); R60.0 Localized edema; G35 Multiple sclerosis; I12.0 Hypertensive chronic kidney disease with stage 5 chronic kidney disease or end stage renal disease; N18.6 End stage renal disease; E78.5 Hyperlipidemia, unspecified; Z99.2 Dependence on renal dialysis; Z94.0 Kidney transplant status

== ENCOUNTER 2018-07-13 10:34 | Outpatient (CLI) | payer OTHER | END 2018-07-13 10:35 | disposition home or self-care (01) | LOC: C.MRIC 10:35 | DX: R42 Dizziness and giddiness (principal) ==

== ENCOUNTER 2018-08-02 09:13 | Observation (INO) | payer OTHER ==
[2018-08-02 09:13] VITALS: BMI 28.3
[2018-08-02 11:51] LABS: BASO % 0.4 % (0.0-2.0); EOS # 0.1 K/uL (0.0-0.7); EOS % 1.2 % (0.0-4.0); HEMOGLOBIN 13.4 g/dL (12.0-18.0); LYMPH # 0.8 K/uL (1.0-4.3); LYMPH % 15.1 % (20.0-40.0); MEAN CORPUSCULAR HEMOGLOBIN 30.3 pg (27.0-31.0); MEAN CORPUSCULAR HGB CONC 35.3 g/dL (33.0-37.0); MEAN PLATELET VOLUME 7.4 fL (7.2-11.7); MONO # 0.7 K/uL (0.0-0.8); MONO % 13.6 % (0.0-10.0); NEUT # 3.7 K/uL (1.8-7.0); NEUT % 69.7 % (50.0-75.0); NRBC % 0.3 % (0.0-2.0); RBC 4.42 Mil/uL (4.40-5.90); WHITE BLOOD COUNT 5.3 K/uL (4.8-10.8)
[2018-08-02 11:53] LABS: MEAN CELL VOLUME 85.9 fL (80.0-94.0)
[2018-08-02 12:19] LABS: ALB/GLOB RATIO 1.6 (1.0-2.1); ALBUMIN 4.6 g/dL (3.5-5.0); BLOOD UREA NITROGEN 17 mg/dL (9-20); CALCIUM 9.8 mg/dl (8.6-10.4); GFR NON-AFRICAN AMERICAN > 60
[2018-08-02 12:21] LABS: ALT/SGPT 27 U/L (21-72); AST/SGOT 40 U/L (17-59)
[2018-08-02] MEDS ORDERED: Sodium Chloride 0.9% 1,000 ML IV SCH (13:00)
--- NOTE | 2018-08-02 13:17 | C.PDOC ---
History Of Present Illness 57 year old male presents to ED s/p seizure. Patient states that he lost consciousness while he was sitting and waiting in Dr. De La Fuente's (neurologist) office. Patient denies falling and injuring himself. Patient states that he has PMHx of seizures and is currently taking medication for it. He states that he had several seizures in June. Patient is currently taking aptiom and keppra, but is unsure of his other medication. He states that he had a kidney transplant in mid-November of 2017 at [facility]. Patient has no current complaints. Patient states that he has an MRI pending in [facility] that was ordered by Dr. De La Fuente. Patient denies headache, chest pain, and SOB. window shade ring sewer #[id number]. Time Seen by Provider: 08/02/18 09:34 Chief Complaint (Nursing): Seizure History Per: Patient, Records Management Coordinator (ID # [id number]) History/Exam Limitations: no limitations Length Of Seizures (Duration): Seconds Post-ictal Period: Yes Past Medical History Reviewed: Historical Data, Nursing Documentation, Vital Signs Vital Signs: Last Vital Signs Temp 98.1 F 08/02/18 12:18 Pulse 72 08/02/18 12:18 Resp 16 08/02/18 12:18 BP 179/89 H 08/02/18 12:18 Pulse Ox 98 08/02/18 12:18 - Medical History PMH: Anemia, Depression, HTN, Hyperlipidemia, Hyperthyroidism, Hypothyroidism, Multiple Sclerosis, Peripheral Edema (before dialysis started), End Stage Renal Disease, Chronic Kidney Disease, Seizures Denies: Sexually Transmitted Disease Surgical History: Endoscopy - [facility] Procedures BYPASS R BRACH ART TO UP ARM VEIN W AUTOL VN, OPEN (01/14/16) DIALYSIS ARTERIOVENOSTOM (10/11/14) DILATION OF LEFT BASILIC VEIN, PERCUTANEOUS APPROACH (01/26/16) DILATION OF LEFT BRACHIAL ARTERY, PERCUTANEOUS APPROACH (01/14/16) HEMODIALYSIS (10/11/14) INSERTION OF INFUSION DEV INTO INF VENA CAVA, PERC APPROACH (01/26/16) INSERTION OF INFUSION DEV INTO SUP VENA CAVA, PERC APPROACH (03/18/16) PACKED CELL TRANSFUSION (10/11/14) PERFORMANCE OF URINARY FILTRATION, MULTIPLE (01/14/16) PERFORMANCE OF URINARY FILTRATION, SINGLE (03/18/16) REVISION OF AUTOL SUB IN UP VEIN, OPEN APPROACH (03/18/16) VACCINATION NEC (10/11/14) VENOUS CATHETERIZATION FOR RENAL DIALYSIS (10/11/14) Family History: States: Unknown Family Hx - Social History Hx Tobacco Use: No Hx Alcohol Use: No Hx Substance Use: No - Immunization History Hx Tetanus Toxoid Vaccination: No Hx Influenza Vaccination: No Hx Pneumococcal Vaccination: No Review Of Systems Constitutional: Negative for: Fever, Chills, Weakness Eyes: Negative for: Vision Change Cardiovascular: Negative for: Chest Pain Respiratory: Negative for: Shortness of Breath Neurological: Negative for: Weakness, Numbness, Headache, Dizziness Physical Exam - Physical Exam Appears: Well, Non-toxic, No Acute Distress Skin: Normal Color, Warm, Dry Head: Atraumatic, Normacephalic Eye(s): bilateral: Normal Inspection, PERRL, EOMI Ear(s): Bilateral: Normal Tongue: No Bite Neck: Supple Chest: Symmetrical, No Deformity Cardiovascular: Murmur (unclear) Respiratory: No Accessory Muscle Use, No Rales, No Rhonchi, No Wheezing Gastrointestinal/Abdominal: Bowel Sounds (normoactive), Soft, No Tenderness, No Distention Extremity: No Calf Tenderness, No Swelling Extremity: Bilateral: Atraumatic, Normal Color And Temperature, Normal ROM Neurological/Psych: Oriented x3, Normal Speech, Normal Cognition, Normal Motor, Normal Sensation ED Course And Treatment - Laboratory Results Result Diagrams: 08/02/18 11:38 08/04/18 11:32 Lab Results: Total Bilirubin 0.8 mg/dL (0.2-1.3) 08/02/18 11:38 AST 40 U/L (17-59) 08/02/18 11:38 ALT 27 U/L (21-72) 08/02/18 11:38 Alkaline Phosphatase 93 U/L (38-126) 08/02/18 11:38 Total Protein 7.4 g/dL (6.3-8.3) 08/02/18 11:38 Albumin 4.6 g/dL (3.5-5.0) 08/02/18 11:38 Globulin 2.8 gm/dL (2.2-3.9) 08/02/18 11:38 Albumin/Globulin Ratio 1.6 (1.0-2.1) 08/02/18 11:38 O2 Sat by Pulse Oximetry: 98 (in RA) Medical Decision Making Medical Decision Makin- called back. Discussed cased with PA. Patient had observed seizure in Dr Purcell's waiting room with no trauma and prolonged postictal phase. requesting electrolytes. pt is not on any anti-seizure meds that can be measured and received today pt sent from Dr Purcell's office. had seizure while seated in wr with prolonged post ictal stage per Dr Beard; he is requesting electrolytes be drawn; pt on keppra only. Plan Labs orderd with CMP and CBC Patient given Norvasc and IV fluds pt found to have mildly decreased sodium. will admit to Dr Zaldivar. Dr Purcell does not do in hospital consults Disposition Discussed With DrKaren: Anna Zaldivar Doctor Will See Patient In The: Hospital - Disposition Disposition: HOSPITALIZED Disposition Time: 15:00 Condition: GOOD - Clinical Impression Clinical Impression: Seizure, Hyponatremia - PA / BALLISTICS TESTER / Resident Statement MD/DO has reviewed & agrees with the documentation as recorded. (Dee Dee dyson) - Scribe Statement The provider has reviewed the documentation as recorded by the Scribe (Dee Dee Mujica) All medical record entries made by the Scribe were at my direction and personally dictated by me. I have reviewed the chart and agree that the record accurately reflects my personal performance of the history, physical exam, medical decision making, and the department course for this patient. I have also personally directed, reviewed, and agree with the discharge instructions and disposition.
[2018-08-02] MEDS ORDERED: Sodium Chloride 0.9% 1,000 ML ONE (13:23)
--- NOTE | 2018-08-02 14:16 | CP.PCM.HP ---
History of Present Illness - History of Present Illness History of Present Illness: PT HAD SEIZURE IN PMD'S OFFICE HAS H/O HTN,CRF, HD IN PAST NOW KIDNEY TRANSPLANT H/O SEIZURE ON KEPPRA ?MS Present on Admission - Present on Admission Any Indicators Present on Admission: No Review of Systems - Review of Systems All systems: reviewed and no additional remarkable complaints except (POST ICTAL) Past Patient History - Infectious Disease Hx of Infectious Diseases: None - Past Medical History & Family History Past Medical History?: Yes - Past Social History Smoking Status: Never Smoked - CARDIAC Hx Hypertension: Yes Hx Peripheral Edema: Yes (before dialysis started) - NEUROLOGICAL Hx Multiple Sclerosis: Yes Hx Seizures: Yes - RENAL Hx Chronic Kidney Disease: Yes - ENDOCRINE/METABOLIC Hx Hyperthyroidism: Yes Hx Hypothyroidism: Yes - HEMATOLOGICAL/ONCOLOGICAL Hx Anemia: Yes - INTEGUMENTARY Hx Dermatological Problems: Yes Other/Comment: FACIAL BUMPS UNSURE OF EXACT NAME. - MUSCULOSKELETAL/RHEUMATOLOGICAL Hx Musculoskeletal Disorders: Yes Hx Falls: Yes - GASTROINTESTINAL Hx Gastrointestinal Disorders: Yes - GENITOURINARY/GYNECOLOGICAL Hx Sexually Transmitted Disorders: No - PSYCHIATRIC Hx Depression: Yes Hx Substance Use: No - SURGICAL HISTORY Hx Arteriovenous Shunt: Yes (R arm) - ANESTHESIA Hx Anesthesia: Yes Hx Anesthesia Reactions: No Hx Malignant Hyperthermia: No Meds Allergies/Adverse Reactions: Allergies Allergy/AdvReac Type Severity Reaction Status Date / Time No Known Allergies Allergy Verified 08/02/18 09:18 Physical Exam - Constitutional Appears: Confused - Head Exam Head Exam: ATRAUMATIC, NORMAL INSPECTION, NORMOCEPHALIC - Eye Exam Eye Exam: EOMI, Normal appearance, PERRL - ENT Exam ENT Exam: Mucous Membranes Moist, Normal Exam - Neck Exam Neck exam: Positive for: Normal Inspection - Respiratory Exam Respiratory Exam: Clear to Auscultation Bilateral, NORMAL BREATHING PATTERN - Cardiovascular Exam Cardiovascular Exam: REGULAR RHYTHM - GI/Abdominal Exam GI & Abdominal Exam: Normal Bowel Sounds, Soft. absent: Tenderness - Neurological Exam Neurological exam: Altered, Reflexes Normal Results - Vital Signs Recent Vital Signs: Last Vital Signs Temp 98.1 F 08/02/18 12:18 Pulse 66 08/02/18 13:30 Resp 18 08/02/18 13:30 BP 181/89 H 08/02/18 13:30 Pulse Ox 98 08/02/18 13:30 - Labs Result Diagrams: 08/02/18 11:38 08/02/18 11:38 Labs: Laboratory Results - last 24 hr 08/02/18 08/02/18 11:38 11:38 WBC 5.3 RBC 4.42 Hgb 13.4 Hct 38.0 MCV 85.9 D MCH 30.3 MCHC 35.3 RDW 14.0 Plt Count 296 MPV 7.4 Neut % (Auto) 69.7 Lymph % (Auto) 15.1 L [place] % (Auto) 13.6 H Eos % (Auto) 1.2 Baso % (Auto) 0.4 Neut # (Auto) 3.7 Lymph # (Auto) 0.8 L [place] # (Auto) 0.7 Eos # (Auto) 0.1 Baso # (Auto) 0.0 Sodium 129 L Potassium 4.3 Chloride 96 L Carbon Dioxide 23 Anion Gap 15 BUN 17 Creatinine 1.0 Est GFR ( Amer) > 60 Est GFR (Non-Af Amer) > 60 Random Glucose 88 Calcium 9.8 Total Bilirubin 0.8 AST 40 ALT 27 Alkaline Phosphatase 93 Total Protein 7.4 Albumin 4.6 Globulin 2.8 Albumin/Globulin Ratio 1.6 Assessment & Plan (1) Seizure disorder Status: Chronic (2) Renal transplant recipient Status: Acute (3) Hyponatremia Status: Acute (4) HTN (hypertension) Status: Chronic
[2018-08-02 17:15] VITALS: RESP 20
--- NOTE | 2018-08-02 18:33 | PCM.RRT ---
<Deisy Cummins - Last Filed: 08/02/18 19:11> PROCESS CONTROLS TECHNICIAN Nurses Assessment - Situation Date: 08/02/18 Time PROCESS CONTROLS TECHNICIAN was called: 18:24 PROCESS CONTROLS TECHNICIAN Responder Arrival Time:: 18:25 (:) PROCESS CONTROLS TECHNICIAN Location:: Med/Surg Room Number: 659-A PROCESS CONTROLS TECHNICIAN Reason for Call: Change in Mental Status PROCESS CONTROLS TECHNICIAN Called By: RN - IV IV Inserted during PROCESS CONTROLS TECHNICIAN?: No - Respiratory PROCESS CONTROLS TECHNICIAN Delivery Method: Room Air - Diagnostic Test Ordered CT Scan: Yes (CT head) CPR started during PROCESS CONTROLS TECHNICIAN?: No I.Reason for PROCESS CONTROLS TECHNICIAN - A) Acute Change in Patient: Subjective: Rapid Response Note - PROCESS CONTROLS TECHNICIAN was called at 18:25 for seizure activity. Seizure was witnessed by the family member that was at the bedside. Per the family, the patient was clenching his jaw. By the time rapid response team arrived, seizure activity had resolved. At time of evaluation patient was AAOx3 and answering questions appropriately. He admits to having paraesthesias in his arms which normally occurs after a seizure. Patient was admitted for syncopal episode at his neurologist's office earlier today. Vital signs BP 195/97 HR 94 CBG 173. Per nursing, patient had just received Norvasc and Vasotec for elevated blood pressures. CT head w/o contrast was ordered. Discussed the case with Dr Pearson who suggested to stop the Keppra, and administer a loading dose of Valproic acid 1 gm IVPB and continue Valproic acid 500mg Q12H IVPB. All questions and concerns were addressed. - Constitutional Appears: Well, Non-toxic - Head Head Exam: ATRAUMATIC, NORMAL INSPECTION - Eyes Eye Exam: EOMI, Normal appearance - Respiratory Exam Respiratory Exam: Clear to Ausculation Bilateral, NORMAL BREATHING PATTERN. absent: Rales, Rhonchi, Wheezes - Cardiovascular Exam Cardiovascular Exam: REGULAR RHYTHM, +S1, +S2 - GI/Abdominal Exam GI & Abdominal Exam: Soft. absent: Guarding, Rigid, Tenderness - Neurological Exam Neurological Exam: Alert, Awake, CN II-XII Intact, Oriented x3 - Extremities Exam Extremities Exam: Full ROM <Tani Silva - Last Filed: 08/08/18 20:07> PROCESS CONTROLS TECHNICIAN Nurses Assessment - Vital Signs Vital Signs: Rapid Response Vital Sign Blood Pressure 195/97 Pulse Rate 89 Respiratory Rate 20 Oxygen Saturation 100 - Vital Signs at end of PROCESS CONTROLS TECHNICIAN Vital Signs at end of PROCESS CONTROLS TECHNICIAN: Rapid Response End Vital Sign Blood Pressure 177/83 Pulse Rate 84 Respiratory Rate 20 O2 Sat by Pulse Oximetry 100 Attending/Attestation - Attestation I have personally seen and examined this patient.: Yes I have fully participated in the care of the patient.: Yes I have reviewed all pertinent clinical information, including history, physical exam and plan: Yes
[2018-08-02] MEDS ORDERED: Valproate 1,000 MG in Sodium Chloride 0.9% 100 ML IVPB ONE (18:41)
[2018-08-02] MEDS ORDERED: Divalproex 500 mg ER Tab PO SCH (18:45)
--- NOTE | 2018-08-02 19:15 | CP.PCM.CON ---
History of Present Illness - History of Present Illness History of Present Illness: Neurology Consultation Note: Consult requested by Dr. Zaldivar Mr. Raghav Agudelo is a 57-year-old man with a past medical history of renal transplant, epilepsy (on Keppra 750 mg BID, Aptiom 800 mg, Fycompa 4 mg daily and Briviact 100 mg BID), who was in his neurologists office, and had a witnessed seizure. He was sent to the ED and admitted, where he had a subsequent seizure. On labs he had hyponatremia to 129. Review of Systems - Review of Systems Systems not reviewed;Unavailable: Altered Mental Status Past Patient History - Infectious Disease Hx of Infectious Diseases: None - Past Medical History & Family History Past Medical History?: Yes - Past Social History Smoking Status: Never Smoked - CARDIAC Hx Hypertension: Yes Hx Peripheral Edema: Yes (before dialysis started) - NEUROLOGICAL Hx Multiple Sclerosis: Yes Hx Seizures: Yes - RENAL Hx Chronic Kidney Disease: Yes - ENDOCRINE/METABOLIC Hx Hyperthyroidism: Yes Hx Hypothyroidism: Yes - HEMATOLOGICAL/ONCOLOGICAL Hx Anemia: Yes - INTEGUMENTARY Hx Dermatological Problems: Yes Other/Comment: FACIAL BUMPS UNSURE OF EXACT NAME. - MUSCULOSKELETAL/RHEUMATOLOGICAL Hx Musculoskeletal Disorders: Yes Hx Falls: Yes - GASTROINTESTINAL Hx Gastrointestinal Disorders: Yes - GENITOURINARY/GYNECOLOGICAL Hx Sexually Transmitted Disorders: No - PSYCHIATRIC Hx Depression: Yes Hx Substance Use: No - SURGICAL HISTORY Hx Arteriovenous Shunt: Yes (R arm) - ANESTHESIA Hx Anesthesia: Yes Hx Anesthesia Reactions: No Hx Malignant Hyperthermia: No Meds Allergies/Adverse Reactions: Allergies Allergy/AdvReac Type Severity Reaction Status Date / Time No Known Allergies Allergy Verified 08/02/18 09:18 - Medications Medications: Current Medications Enalapril Maleate (Vasotec) 5 mg PO DAILY [facility] Last Admin: 08/02/18 16:48 Dose: 5 mg Famotidine (Pepcid) 20 mg PO DAILY [facility] Valproate Sodium 1,000 mg/ (Sodium Chloride) 110 mls @ 100 mls/hr IVPB ONCE ONE Stop: 08/02/18 19:46 Valproate Sodium 500 mg/ (Sodium Chloride) 105 mls @ 100 mls/hr IVPB Q12H [facility] Prednisone (Prednisone Tab) 5 mg PO DAILY [facility] Physical Exam - Constitutional Appears: Well - Head Exam Head Exam: ATRAUMATIC, NORMAL INSPECTION, NORMOCEPHALIC - Eye Exam Eye Exam: EOMI, Normal appearance, PERRL Pupil Exam: NORMAL ACCOMODATION, PERRL - ENT Exam ENT Exam: Mucous Membranes Moist, Normal Exam - Neck Exam Neck exam: Positive for: Normal Inspection - Respiratory Exam Respiratory Exam: Clear to Auscultation Bilateral, NORMAL BREATHING PATTERN - Cardiovascular Exam Cardiovascular Exam: REGULAR RHYTHM - GI/Abdominal Exam GI & Abdominal Exam: Normal Bowel Sounds, Soft. absent: Tenderness - Extremities Exam Extremities exam: Positive for: normal inspection - Back Exam Back exam: NORMAL INSPECTION - Neurological Exam Neurological exam: Altered, CN II-XII Intact, Normal Gait, Oriented x3, Reflexes Normal - Psychiatric Exam Psychiatric exam: Normal Affect, Normal Mood - Skin Skin Exam: Dry, Intact, Normal Color, Warm Results - Vital Signs Recent Vital Signs: Last Vital Signs Temp 97.9 F 08/02/18 15:30 Pulse 72 08/02/18 15:30 Resp 20 08/02/18 15:30 BP 169/81 H 08/02/18 17:15 Pulse Ox 99 08/02/18 15:30 - Labs Result Diagrams: 08/02/18 11:38 08/02/18 11:38 Labs: Laboratory Results - last 24 hr 08/02/18 08/02/18 08/02/18 11:38 11:38 18:28 WBC 5.3 RBC 4.42 Hgb 13.4 Hct 38.0 MCV 85.9 D MCH 30.3 MCHC 35.3 RDW 14.0 Plt Count 296 MPV 7.4 Neut % (Auto) 69.7 Lymph % (Auto) 15.1 L [place] % (Auto) 13.6 H Eos % (Auto) 1.2 Baso % (Auto) 0.4 Neut # (Auto) 3.7 Lymph # (Auto) 0.8 L [place] # (Auto) 0.7 Eos # (Auto) 0.1 Baso # (Auto) 0.0 Sodium 129 L Potassium 4.3 Chloride 96 L Carbon Dioxide 23 Anion Gap 15 BUN 17 Creatinine 1.0 Est GFR ( Amer) > 60 Est GFR (Non-Af Amer) > 60 POC Glucose (mg/dL) 173 H Random Glucose 88 Calcium 9.8 Total Bilirubin 0.8 AST 40 ALT 27 Alkaline Phosphatase 93 Total Protein 7.4 Albumin 4.6 Globulin 2.8 Albumin/Globulin Ratio 1.6 Assessment & Plan (1) Epilepsy Assessment and Plan: Hyponatremia may be a contributing factor. Keppra and Briviact could cause hyponatremia. He appears to not be well controlled despite being on 4 seizure medications. We can go up on Fycompa to 8 mg daily. Will obtain CT scan of the head for further evaluation. EEG is also recommended. Thank you for this consultation. Status: Acute
[2018-08-02 19:59] LABS: BARBITURATES, UR NEGATIVE (NEGATIVE); BENZODIAZEPINES, UR NEGATIVE (NEGATIVE); OPIATES, UR NEGATIVE (NEGATIVE); PHENCYCLIDINE, UR NEGATIVE (NEGATIVE)
[2018-08-03 07:34] LABS: BLOOD UREA NITROGEN 20 mg/dL (9-20); CALCIUM 9.8 mg/dl (8.6-10.4); GFR NON-AFRICAN AMERICAN 52
--- NOTE | 2018-08-03 09:06 | CP.PCM.CON ---
History of Present Illness - History of Present Illness History of Present Illness: patient seen and examined consult dictated unable to give hx hyponatremia etiology unclear considerations include siadh due to meds,seizure disorder need better hx with symptomatolgy prior to admissin as well as baseline chems Recommend urine chems trial of iv saline maintain present immunosupression follow levels of prograf and zostress Past Patient History - Infectious Disease Hx of Infectious Diseases: None - Past Medical History & Family History Past Medical History?: Yes - Past Social History Smoking Status: Never Smoked - CARDIAC Hx Hypertension: Yes Hx Peripheral Edema: Yes (before dialysis started) - NEUROLOGICAL Hx Multiple Sclerosis: Yes Hx Seizures: Yes - RENAL Hx Chronic Kidney Disease: Yes - ENDOCRINE/METABOLIC Hx Hyperthyroidism: Yes Hx Hypothyroidism: Yes - HEMATOLOGICAL/ONCOLOGICAL Hx Anemia: Yes - INTEGUMENTARY Hx Dermatological Problems: Yes Other/Comment: FACIAL BUMPS UNSURE OF EXACT NAME. - MUSCULOSKELETAL/RHEUMATOLOGICAL Hx Musculoskeletal Disorders: Yes Hx Falls: Yes - GASTROINTESTINAL Hx Gastrointestinal Disorders: Yes - GENITOURINARY/GYNECOLOGICAL Hx Sexually Transmitted Disorders: No - PSYCHIATRIC Hx Depression: Yes Hx Substance Use: No - SURGICAL HISTORY Hx Arteriovenous Shunt: Yes (R arm) - ANESTHESIA Hx Anesthesia: Yes Hx Anesthesia Reactions: No Hx Malignant Hyperthermia: No Meds Allergies/Adverse Reactions: Allergies Allergy/AdvReac Type Severity Reaction Status Date / Time No Known Allergies Allergy Verified 08/02/18 09:18 - Medications Medications: Current Medications Enalapril Maleate (Vasotec) 5 mg PO DAILY [facility] Last Admin: 08/02/18 16:48 Dose: 5 mg Famotidine (Pepcid) 20 mg PO DAILY [facility] Valproate Sodium 500 mg/ (Sodium Chloride) 105 mls @ 100 mls/hr IVPB Q12H [facility] Prednisone (Prednisone Tab) 5 mg PO DAILY [facility] Results - Vital Signs Recent Vital Signs: Last Vital Signs Temp 98.0 F 08/03/18 07:00 Pulse 72 08/03/18 09:02 Resp 20 08/03/18 07:00 BP 169/80 H 08/03/18 07:00 Pulse Ox 99 08/03/18 07:00 - Labs Result Diagrams: 08/02/18 11:38 08/03/18 06:57 Labs: Laboratory Results - last 24 hr 08/02/18 08/02/18 08/02/18 11:38 11:38 18:28 WBC 5.3 RBC 4.42 Hgb 13.4 Hct 38.0 MCV 85.9 D MCH 30.3 MCHC 35.3 RDW 14.0 Plt Count 296 MPV 7.4 Neut % (Auto) 69.7 Lymph % (Auto) 15.1 L [place] % (Auto) 13.6 H Eos % (Auto) 1.2 Baso % (Auto) 0.4 Neut # (Auto) 3.7 Lymph # (Auto) 0.8 L [place] # (Auto) 0.7 Eos # (Auto) 0.1 Baso # (Auto) 0.0 Sodium 129 L Potassium 4.3 Chloride 96 L Carbon Dioxide 23 Anion Gap 15 BUN 17 Creatinine 1.0 Est GFR ( Amer) > 60 Est GFR (Non-Af Amer) > 60 POC Glucose (mg/dL) 173 H Random Glucose 88 Calcium 9.8 Total Bilirubin 0.8 AST 40 ALT 27 Alkaline Phosphatase 93 Total Protein 7.4 Albumin 4.6 Globulin 2.8 Albumin/Globulin Ratio 1.6 Urine Opiates Screen Urine Methadone Screen Ur Barbiturates Screen Ur Phencyclidine Scrn Ur Amphetamines Screen U Benzodiazepines Scrn U Oth Cocaine Metabols U Cannabinoids Screen 08/02/18 08/03/18 18:55 06:57 WBC RBC Hgb Hct MCV MCH MCHC RDW Plt Count MPV Neut % (Auto) Lymph % (Auto) [place] % (Auto) Eos % (Auto) Baso % (Auto) Neut # (Auto) Lymph # (Auto) [place] # (Auto) Eos # (Auto) Baso # (Auto) Sodium 128 L Potassium 4.6 Chloride 95 L Carbon Dioxide 25 Anion Gap 13 BUN 20 Creatinine 1.4 Est GFR ( Amer) > 60 Est GFR (Non-Af Amer) 52 POC Glucose (mg/dL) Random Glucose 92 Calcium 9.8 Total Bilirubin AST ALT Alkaline Phosphatase Total Protein Albumin Globulin Albumin/Globulin Ratio Urine Opiates Screen Negative Urine Methadone Screen Negative Ur Barbiturates Screen Negative Ur Phencyclidine Scrn Negative Ur Amphetamines Screen Negative U Benzodiazepines Scrn Negative U Oth Cocaine Metabols Negative U Cannabinoids Screen Negative Assessment & Plan (1) Hyponatremia Status: Acute
--- NOTE | 2018-08-03 09:22 | CP.PCM.PN ---
Subjective - Date & Time of Evaluation Date of Evaluation: 08/03/18 Time of Evaluation: 09:30 - Subjective Subjective: hospital pharmacy does not have zortress called sister and left meassage on voice mail to bring in home med Objective - Vital Signs/Intake and Output Vital Signs (last 24 hours): Temp Pulse Resp BP Pulse Ox 98.0 F 72 20 169/80 H 99 08/03/18 07:00 08/03/18 09:02 08/03/18 07:00 08/03/18 07:00 08/03/18 07:00 - Medications Medications: Current Medications Enalapril Maleate (Vasotec) 5 mg PO DAILY [facility] Last Admin: 08/02/18 16:48 Dose: 5 mg Famotidine (Pepcid) 20 mg PO DAILY [facility] Valproate Sodium 500 mg/ (Sodium Chloride) 105 mls @ 100 mls/hr IVPB Q12H [facility] Sodium Chloride (Sodium Chloride 0.9%) 1,000 mls @ 100 mls/hr IV .Q10H [facility] Prednisone (Prednisone Tab) 5 mg PO DAILY [facility] Tacrolimus (Prograf) 2 mg PO DAILY [facility] - Labs Labs: 08/02/18 11:38 08/03/18 06:57 Assessment and Plan (1) Hyponatremia Status: Acute
[2018-08-03] MEDS ORDERED: Valproate 500 MG in Sodium Chloride 0.9% 100 ML IVPB SCH (10:00)
[2018-08-03] MEDS: Sodium Chloride 0.9% 1,000 ML IV SCH ×2 (11:05→21:52)
--- NOTE | 2018-08-03 12:24 | CP.PCM.PN ---
Subjective - Date & Time of Evaluation Date of Evaluation: 08/03/18 Time of Evaluation: 12:23 - Subjective Subjective: NO FURTHER SZ. AFTER ONE IN LAST PM NA IS STILL 128, NEOPHRO. ON BOARD WITH NS SALINE 100CC/HR BP STABLE Objective - Vital Signs/Intake and Output Vital Signs (last 24 hours): Temp Pulse Resp BP Pulse Ox 98.0 F 76 20 156/75 H 99 08/03/18 07:00 08/03/18 12:19 08/03/18 07:00 08/03/18 09:38 08/03/18 07:00 - Medications Medications: Current Medications Enalapril Maleate (Vasotec) 5 mg PO DAILY [facility] Last Admin: 08/03/18 09:38 Dose: 5 mg Famotidine (Pepcid) 20 mg PO DAILY [facility] Last Admin: 08/03/18 09:38 Dose: 20 mg Heparin Sodium (Porcine) (Heparin) 5,000 units SC Q12H [facility]S [facility] Home Med (Patient's Own Medication) 6 tab PO Q12 [facility] Valproate Sodium 500 mg/ (Sodium Chloride) 105 mls @ 100 mls/hr IVPB Q12H [facility] Last Admin: 08/03/18 09:40 Dose: 100 mls/hr Sodium Chloride (Sodium Chloride 0.9%) 1,000 mls @ 100 mls/hr IV .Q10H [facility]S [facility] Last Admin: 08/03/18 11:05 Dose: 100 mls/hr Prednisone (Prednisone Tab) 5 mg PO DAILY [facility] Last Admin: 08/03/18 09:38 Dose: 5 mg Tacrolimus (Prograf Cap) 2 mg PO DAILY [facility] Last Admin: 08/03/18 10:50 Dose: 2 mg - Labs Labs: 08/02/18 11:38 08/03/18 06:57 Assessment and Plan (1) Seizure disorder Status: Chronic (2) Renal transplant recipient Status: Acute (3) Hyponatremia Status: Acute (4) HTN (hypertension) Status: Chronic
--- NOTE | 2018-08-03 12:30 | CT ---
Date of service: 08/02/2018 PROCEDURE: CT HEAD WITHOUT CONTRAST. HISTORY: Seizures COMPARISON: Comparison made with prior CT scan brain 01/14/2016. Comparison also made with prior MRI of the brain 07/13/2018 TECHNIQUE: Axial computed tomography images were obtained through the head/brain without intravenous contrast. Radiation dose: Total exam DLP = 1097.39 mGy-cm. This CT exam was performed using one or more of the following dose reduction techniques: Automated exposure control, adjustment of the mA and/or kV according to patient size, and/or use of iterative reconstruction technique. FINDINGS: HEMORRHAGE: No acute parenchymal, subarachnoid or extra-axial hemorrhage. BRAIN: Redemonstrated are manifestations of tuberous sclerosis. There are multiple small partially calcified subependymal hamartomas and scattered cortical/subcortical tubers some of which exhibit low-attenuation and others low-attenuation changes as well as calcifications. There is also a large calcification in the region of the right foramen of Monro consistent with giant cell astrocytoma. Concomitant chronic sequela of small vessel disease in the periventricular as well as scattered about the deep and subcortical white matter may be present as well. Curvilinear calcifications again noted in the left cerebellum outlining the cerebellar folia.. Moderate generalized volume loss. VENTRICLES: No obstructive hydrocephalus. CALVARIUM: There are no acute calvarial fractures. PARANASAL SINUSES: Unremarkable as visualized. No significant inflammatory changes. MASTOID AIR CELLS: Unremarkable as visualized. No inflammatory changes. OTHER FINDINGS: None. 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 Concomitant chronic sequela of small vessel disease in the periventricular as No evidence of acute intracranial hemorrhage. Moderate generalized volume loss.
--- NOTE | 2018-08-03 14:11 | CP.PCM.PN ---
Subjective - Date & Time of Evaluation Date of Evaluation: 08/03/18 Time of Evaluation: 14:10 - Subjective Subjective: Neuro Follow-Up Note: Mr. Raghav Agudelo was evaluated this afternoon with sisters at bedside. Pt states that he feels well today and offers no complaints. He admits to recently having his AE medications changed by Dr. Purcell (his outpatient neurologist; Keppra was decreased to 500 mg BID, Briviat was added as a new med; Fycompa was Rx as 8 mg PO HS but pt takes 4 mg HS). Sisters express concerns of pt being noncompliant though he states he is. No further seizures since yesterday. Currently denies h/a, dizziness, visual changes, chest pain, palpitations, sob, cough, abd pain, n/v/d, fever/chills, paresthesias. Objective - Vital Signs/Intake and Output Vital Signs (last 24 hours): Temp Pulse Resp BP Pulse Ox 98.0 F 76 20 156/75 H 99 08/03/18 07:00 08/03/18 12:19 08/03/18 07:00 08/03/18 09:38 08/03/18 07:00 - Medications Medications: Current Medications Enalapril Maleate (Vasotec) 5 mg PO DAILY [facility] Last Admin: 08/03/18 09:38 Dose: 5 mg Famotidine (Pepcid) 20 mg PO DAILY [facility] Last Admin: 08/03/18 09:38 Dose: 20 mg Heparin Sodium (Porcine) (Heparin) 5,000 units SC Q12H [facility] Home Med (Patient's Own Medication) 6 tab PO Q12 [facility] Valproate Sodium 500 mg/ (Sodium Chloride) 105 mls @ 100 mls/hr IVPB Q12H [facility] Last Admin: 08/03/18 09:40 Dose: 100 mls/hr Sodium Chloride (Sodium Chloride 0.9%) 1,000 mls @ 100 mls/hr IV .Q10H [facility] Last Admin: 08/03/18 11:05 Dose: 100 mls/hr Prednisone (Prednisone Tab) 5 mg PO DAILY [facility] Last Admin: 08/03/18 09:38 Dose: 5 mg Tacrolimus (Prograf Cap) 2 mg PO DAILY [facility] Last Admin: 08/03/18 10:50 Dose: 2 mg - Labs Labs: 08/02/18 11:38 08/03/18 06:57 - Constitutional Appears: Well, Non-toxic, No Acute Distress - Head Exam Head Exam: ATRAUMATIC, NORMAL INSPECTION, NORMOCEPHALIC - Eye Exam Eye Exam: EOMI, Normal appearance, PERRL Pupil Exam: NORMAL ACCOMODATION, PERRL - ENT Exam ENT Exam: Mucous Membranes Moist - Neck Exam Neck Exam: Full ROM, Normal Inspection - Respiratory Exam Respiratory Exam: NORMAL BREATHING PATTERN - Extremities Exam Extremities Exam: Full ROM. absent: Calf Tenderness, Pedal Edema - Back Exam Back Exam: Full ROM - Neurological Exam Neurological Exam: Alert, Awake, CN II-XII Intact, Oriented x3, Reflexes Normal Neuro motor strength exam: Left Upper Extremity: 5, Right Upper Extremity: 5, Left Lower Extremity: 5, Right Lower Extremity: 5 Additional comments: Speech clear No focal motor or sensory deficits No tremors or abnormal movements - Psychiatric Exam Psychiatric exam: Normal Affect, Normal Mood - Skin Skin Exam: Normal Color Additional comments: multiple bumps to face, no drainage Assessment and Plan (1) Epilepsy Assessment & Plan: Imaging reviewed: -CT Head (08/02/18): Findings consistent with tuberous sclerosis with a partially calcified giant cell astrocytoma right foramen of [place]ro region. Concomitant chronic sequela of small vessel disease in the periventricular as no evidence of acute intracranial hemorrhage. Moderate generalized volume loss. -Continue to monitor Na and replace prn. -Continue seizure precautions. -Valproate d/c'd. -Start home med Keppra 500 mg PO Q12 -Pt may use home meds after being verified from pharmacy: Fycompa 8 mg PO QHS; Aptiom 800 mg PO BID; Briviact 100 mg PO BID. -Pt was instructed by his neurologist to see a neurosurgeon, Dr. 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 -Notify neuro of any acute changes in condition. Lisa Larsen, DNP, V[employer] SERVICES SPECIALIST D/W Dr. Pearson Status: Acute
[2018-08-03 14:12] LABS: BLOOD UREA NITROGEN 18 mg/dL (9-20); CALCIUM 9.4 mg/dl (8.6-10.4); GFR NON-AFRICAN AMERICAN > 60
--- NOTE | 2018-08-03 15:10 | CON ---
DATE: 08/03/2018 ATTENDING PHYSICIAN: Anna Zaldivar MD HISTORY OF PRESENTING ILLNESS: Mr. Raghav Agudelo is a 57-year-old male who is being seen for hyponatremia and a kidney transplant. Mr. Raghav Agudelo speaks no Vietnamese and the history was obtained via an transitional living specialist and the chart. During questioning, he seemed to be confused and had no memory of past history or medications or prior symptomatology. According to the chart, he received a kidney transplant in 11/2017 at [facility]. He does not know if he was on dialysis prior and does not know the etiology of his renal disease. He does have a history of seizures and is on multiple medications including Keppra, Aptiom, Fycompa, and Briviact. He apparently was in his neurologist's office when he had a seizure. He was brought to the emergency room and admitted. On 08/02/2018, his white count was 5300, hemoglobin 13.4, hematocrit 38, platelet count 296,000, sodium 129, potassium 4.3, chloride 96, CO2 of 23, BUN 17, creatinine 1, glucose 88, calcium 9.8, total bili 0.8, AST of 40, ALT of 27, alk phos of 93, total protein of 7.4, albumin 4.6, and his tox screen was negative. This morning, his sodium was 128, potassium 4.6, BUN 20 and a creatinine of 1.4. Calcium was 9.8. PAST HISTORY: Please see the above. There is a history of hypertension and multiple sclerosis and hypothyroidism according to the old records. ALLERGIES: HE HAS NO ALLERGIES. He has been admitted to [facility]. MEDICATIONS: His home medications include the above seizure medications. Prednisone 5 mg a day, Prograf 2 mg a day and Zortress 6 mg twice a day. He also is on Vasotec, Pepcid, fish oil, pravastatin, Nephrocaps and Bactrim. FAMILY HISTORY: He does not know his family history. SOCIAL HISTORY: Negative for alcohol or drug abuse. He does not smoke. REVIEW OF SYSTEMS: He cannot remember previous symptomatology but at present, he deny he has a headache. There are no visual disturbances. He denied shortness of breath or chest pain. There was no abdominal pain, nausea or vomiting. He denies dysuria. PHYSICAL EXAMINATION: GENERAL: He was an obese male, awake and alert,follows commands, knew his name, the place was the hospital, and he knew the date. VITAL SIGNS: His temperature was 98. His pulse was 79. His blood pressure was 169/80. NECK: There was no jugular venous distension at 60 to 70 degrees. LUNGS: Clear. HEART: Rhythm was regular. ABDOMEN: Soft and nontender. There was no definite hepatomegaly. A graft in the right lower quadrant was nontender or enlarged. Access was patent in his right arm. EXTREMITIES: There were no gross motor deficits and there was no edema. IMPRESSION: Post kidney transplant, hypertension, seizure disorder, altered mental status, etiology unclear, hyponatremia, etiology unclear, without a history of previous symptomatology, although present medications can cause hyponatremia. PLAN: Would recommend urine for sodium osmolality, a trial of normal saline, would maintain present immunosuppression, await further neurological evaluation and serial chemistries. Thank you for your kind referral. We will continue to follow with you. Tawanda Foote MD
[2018-08-03 15:50] LABS: OSMOLALITY,URINE 488 mosm/kg (300-1000)
[2018-08-03] MEDS: BRIVARACETAM 100 MG PO SCH (19:31)
[2018-08-03] MEDS: ESLICARBAZEPINE 800 MG PO SCH (19:33)
[2018-08-03] MEDS: EVEROLIMUS 0.5 MG PO SCH (21:49)
[2018-08-03] MEDS ORDERED: [UNRECOGNIZED DRUG - OTHER] PO SCH (22:00)
[2018-08-04] MEDS: ESLICARBAZEPINE 800 MG PO SCH ×2 (09:41→17:38)
[2018-08-04] MEDS: EVEROLIMUS 0.5 MG PO SCH (09:41)
[2018-08-04] MEDS: BRIVARACETAM 100 MG PO SCH ×2 (09:47→17:48)
[2018-08-04] MEDS: Sodium Chloride 0.9% 1,000 ML IV SCH (09:48)
[2018-08-04 11:54] LABS: BLOOD UREA NITROGEN 19 mg/dL (9-20); CALCIUM 9.4 mg/dl (8.6-10.4); GFR NON-AFRICAN AMERICAN > 60
--- NOTE | 2018-08-04 12:21 | CP.PCM.DIS ---
Provider - Provider Date of Admission: 08/02/18 13:17 Attending physician: Anna Zaldivar MD Consults: 08/02/18 13:44 Neurology Consult Routine Comment: Consulting Provider: Otoniel Pearson Consulting Physician: Otoniel Pearson Reason for Consult: seizure disorder, hyponatremia 08/02/18 16:15 Physician Consult Routine Comment: Consulting Provider: Jose Luis Navas Consulting Physician: Jose Luis Navas Reason for Consult: kidney transplant Time Spent in preparation of Discharge (in minutes): 30 Diagnosis - Discharge Diagnosis (1) Seizure disorder Status: Chronic (2) Renal transplant recipient Status: Acute (3) Hyponatremia Status: Acute (4) HTN (hypertension) Status: Chronic Hospital Course - Lab Results Lab Results: Most Recent Lab Values WBC 5.3 K/uL (4.8-10.8) 08/02/18 11:38 RBC 4.42 Mil/uL (4.40-5.90) 08/02/18 11:38 Hgb 13.4 g/dL (12.0-18.0) 08/02/18 11:38 Hct 38.0 % (35.0-51.0) 08/02/18 11:38 MCV 85.9 fL (80.0-94.0) D 08/02/18 11:38 MCH 30.3 pg (27.0-31.0) 08/02/18 11:38 MCHC 35.3 g/dL (33.0-37.0) 08/02/18 11:38 RDW 14.0 % (11.5-14.5) 08/02/18 11:38 Plt Count 296 K/uL (130-400) 08/02/18 11:38 MPV 7.4 fL (7.2-11.7) 08/02/18 11:38 Neut % (Auto) 69.7 % (50.0-75.0) 08/02/18 11:38 Lymph % (Auto) 15.1 % (20.0-40.0) L 08/02/18 11:38 Lynn % (Auto) 13.6 % (0.0-10.0) H 08/02/18 11:38 Eos % (Auto) 1.2 % (0.0-4.0) 08/02/18 11:38 Baso % (Auto) 0.4 % (0.0-2.0) 08/02/18 11:38 Neut # (Auto) 3.7 K/uL (1.8-7.0) 08/02/18 11:38 Lymph # (Auto) 0.8 K/uL (1.0-4.3) L 08/02/18 11:38 Lynn # (Auto) 0.7 K/uL (0.0-0.8) 08/02/18 11:38 Eos # (Auto) 0.1 K/uL (0.0-0.7) 08/02/18 11:38 Baso # (Auto) 0.0 K/uL (0.0-0.2) 08/02/18 11:38 Sodium 132 mmol/L (132-148) 08/04/18 11:32 Potassium 4.3 mmol/L (3.6-5.2) 08/04/18 11:32 Chloride 101 mmol/L (98-107) 08/04/18 11:32 Carbon Dioxide 24 mmol/L (22-30) 08/04/18 11:32 Anion Gap 11 (10-20) 08/04/18 11:32 BUN 19 mg/dL (9-20) 08/04/18 11:32 Creatinine 1.1 mg/dL (0.8-1.5) 08/04/18 11:32 Est GFR ( Amer) > 60 08/04/18 11:32 Est GFR (Non-Af Amer) > 60 08/04/18 11:32 POC Glucose (mg/dL) 173 mg/dL (65-110) H 08/02/18 18:28 Random Glucose 88 mg/dL (75-110) 08/04/18 11:32 Calcium 9.4 mg/dl (8.6-10.4) 08/04/18 11:32 Total Bilirubin 0.8 mg/dL (0.2-1.3) 08/02/18 11:38 AST 40 U/L (17-59) 08/02/18 11:38 ALT 27 U/L (21-72) 08/02/18 11:38 Alkaline Phosphatase 93 U/L (38-126) 08/02/18 11:38 Total Protein 7.4 g/dL (6.3-8.3) 08/02/18 11:38 Albumin 4.6 g/dL (3.5-5.0) 08/02/18 11:38 Globulin 2.8 gm/dL (2.2-3.9) 08/02/18 11:38 Albumin/Globulin Ratio 1.6 (1.0-2.1) 08/02/18 11:38 Urine Osmolality 488 mosm/kg (300-1000) 08/03/18 15:28 Ur Random Sodium 60 mmol/L 08/03/18 15:28 Urine Opiates Screen Negative (NEGATIVE) 08/02/18 18:55 Urine Methadone Screen Negative (NEGATIVE) 08/02/18 18:55 Ur Barbiturates Screen Negative (NEGATIVE) 08/02/18 18:55 Ur Phencyclidine Scrn Negative (NEGATIVE) 08/02/18 18:55 Ur Amphetamines Screen Negative (NEGATIVE) 08/02/18 18:55 U Benzodiazepines Scrn Negative (NEGATIVE) 08/02/18 18:55 U Oth Cocaine Metabols Negative (NEGATIVE) 08/02/18 18:55 U Cannabinoids Screen Negative (NEGATIVE) 08/02/18 18:55 - Hospital Course Hospital Course: PT HAD SEIZURE IN PMD'S OFFICE HAS H/O HTN,CRF, HD IN PAST NOW KIDNEY TRANSPLANT H/O SEIZURE ON KEPPRA ?MS HAS H/O CALCIFIED ASTROCYTOMA NA WAS 129 IN ER PT WAS GIVEN IV NS AND NA WAS CORRECTED HAD ONE SZ ON ADMISSION NEURO RECOMMENDED KEPPRA PT IS STABLE D/C ON KEPPREA AND HOME MEDS F/U WITH HIS NEUROLOGIST Discharge Exam - Head Exam Head Exam: ATRAUMATIC, NORMAL INSPECTION, NORMOCEPHALIC Discharge Plan - Follow Up Plan Condition: GOOD Disposition: HOME/ ROUTINE
--- NOTE | 2018-08-04 12:41 | CP.PCM.PN ---
Subjective - Date & Time of Evaluation Date of Evaluation: 08/04/18 Time of Evaluation: 12:39 - Subjective Subjective: feels better renal function improved- creat 1.1 now hyponatremia improved no more seizures likely for discharge can follow up in office for renal transplant Objective - Vital Signs/Intake and Output Vital Signs (last 24 hours): Temp Pulse Resp BP Pulse Ox 98 F 72 20 143/72 96 08/04/18 07:00 08/04/18 08:00 08/04/18 07:00 08/04/18 09:38 08/04/18 07:00 Intake and Output: 08/04/18 08/04/18 06:59 18:59 Intake Total 1120 Output Total 700 Balance 420 - Medications Medications: Current Medications Enalapril Maleate (Vasotec) 5 mg PO DAILY [facility] Last Admin: 08/04/18 09:38 Dose: 5 mg Famotidine (Pepcid) 20 mg PO DAILY [facility] Last Admin: 08/04/18 09:37 Dose: 20 mg Heparin Sodium (Porcine) (Heparin) 5,000 units SC Q12H [facility] Last Admin: 08/03/18 17:56 Dose: 5,000 units Home Med (Patient's Own Medication) 6 tab PO Q12H [facility] Last Admin: 08/04/18 09:41 Dose: 6 tab Home Med (Patient's Own Control Medication) 1 tab PO BID [facility] Last Admin: 08/04/18 09:47 Dose: 1 tab Home Med (Patient's Own Medication) 1 tab PO BID [facility] Last Admin: 08/04/18 09:41 Dose: 1 tab Home Med (Patient's Own Control Medication Ii) 2 tab PO HS [facility] Last Admin: 08/03/18 21:49 Dose: 2 tab Sodium Chloride (Sodium Chloride 0.9%) 1,000 mls @ 100 mls/hr IV .Q10H [facility] Last Admin: 08/04/18 09:48 Dose: 100 mls/hr Levetiracetam (Keppra) 500 mg PO BID [facility] Last Admin: 08/04/18 09:38 Dose: 500 mg Prednisone (Prednisone Tab) 5 mg PO DAILY [facility] Last Admin: 08/04/18 09:37 Dose: 5 mg Tacrolimus (Prograf Cap) 2 mg PO DAILY [facility] Last Admin: 08/04/18 09:39 Dose: 2 mg - Labs Labs: 08/02/18 11:38 08/04/18 11:32
--- NOTE | 2018-08-04 14:00 | CP.PCM.PN ---
Subjective - Date & Time of Evaluation Date of Evaluation: 08/04/18 Time of Evaluation: 13:56 - Subjective Subjective: Neuro Follow-Up Note: Mr. Raghav Agudelo was evaluated this afternoon. He is for possible d/c home today. Pt states that he feels good. Does not offer any new complaints. No further seizure activity. Currently denies h/a, dizziness, visual changes, chest pain, palpitations, sob, cough, abd pain, n/v/d, fever/chills, paresthesias. Objective - Vital Signs/Intake and Output Vital Signs (last 24 hours): Temp Pulse Resp BP Pulse Ox 98 F 79 20 143/72 96 08/04/18 07:00 08/04/18 13:52 08/04/18 07:00 08/04/18 09:38 08/04/18 12:00 Intake and Output: 08/04/18 08/04/18 06:59 18:59 Intake Total 1120 Output Total 700 Balance 420 - Medications Medications: Current Medications Enalapril Maleate (Vasotec) 5 mg PO DAILY [facility] Last Admin: 08/04/18 09:38 Dose: 5 mg Famotidine (Pepcid) 20 mg PO DAILY [facility] Last Admin: 08/04/18 09:37 Dose: 20 mg Heparin Sodium (Porcine) (Heparin) 5,000 units SC Q12H [facility] Last Admin: 08/03/18 17:56 Dose: 5,000 units Home Med (Patient's Own Medication) 6 tab PO Q12H [facility] Last Admin: 08/04/18 09:41 Dose: 6 tab Home Med (Patient's Own Control Medication) 1 tab PO BID [facility] Last Admin: 08/04/18 09:47 Dose: 1 tab Home Med (Patient's Own Medication) 1 tab PO BID [facility] Last Admin: 08/04/18 09:41 Dose: 1 tab Home Med (Patient's Own Control Medication Ii) 2 tab PO HS [facility] Last Admin: 08/03/18 21:49 Dose: 2 tab Sodium Chloride (Sodium Chloride 0.9%) 1,000 mls @ 100 mls/hr IV .Q10H [facility] Last Admin: 08/04/18 09:48 Dose: 100 mls/hr Levetiracetam (Keppra) 500 mg PO BID [facility] Last Admin: 08/04/18 09:38 Dose: 500 mg Prednisone (Prednisone Tab) 5 mg PO DAILY [facility] Last Admin: 08/04/18 09:37 Dose: 5 mg Tacrolimus (Prograf Cap) 2 mg PO DAILY [facility] Last Admin: 08/04/18 09:39 Dose: 2 mg - Labs Labs: 08/02/18 11:38 08/04/18 11:32 - Constitutional Appears: Well, Non-toxic, No Acute Distress - Head Exam Head Exam: ATRAUMATIC, NORMAL INSPECTION, NORMOCEPHALIC - Eye Exam Eye Exam: EOMI, Normal appearance, PERRL Pupil Exam: NORMAL ACCOMODATION, PERRL - ENT Exam ENT Exam: Mucous Membranes Moist - Neck Exam Neck Exam: Full ROM, Normal Inspection - Respiratory Exam Respiratory Exam: NORMAL BREATHING PATTERN - Extremities Exam Extremities Exam: Full ROM, Normal Inspection. absent: Calf Tenderness, Pedal Edema - Back Exam Back Exam: Full ROM - Neurological Exam Neurological Exam: Alert, Awake, CN II-XII Intact, Oriented x3, Reflexes Normal Neuro motor strength exam: Left Upper Extremity: 5, Right Upper Extremity: 5, Left Lower Extremity: 5, Right Lower Extremity: 5 Additional comments: Speech clear, fluid No focal motor or sensory deficits. No tremors or abnormal movements. 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 Concomitant chronic sequela of small vessel disease in the periventricular as no evidence of acute intracranial hemorrhage. Moderate generalized volume loss. -Continue home AE medications: Keppra 500 mg PO Q12; Fycompa 8 mg PO QHS; Aptiom 800 mg PO BID; Briviact 100 mg PO BID. -Pt was instructed by his neurologist, Dr. Purcell, to see a neurosurgeon, Dr. 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 Please provide pt with copy of Brain MRI and CT Head on CD so that he may take this to Dr. Knox' office. -Pt to see his neurologist in the office within 1-2 weeks for f/u. 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 -No further neuro recommendations. Reconsult prn. Thank you for this consultation. Lisa Larsen DNP, HYDROGENATION STILL OPERATOR D/W Dr. Pearson Status: Acute
[2018-08-04 16:11] VITALS: PULSE 90
[2018-08-04 17:40] VITALS: TEMP 98.6
[2018-08-04 17:59] VITALS: BP 150/75
[2018-08-10 13:39] VITALS: O2SAT 98
== END 2018-08-04 18:24 | disposition home or self-care (01) ==
LOC: C.ER 09:13 → C.3T 13:17 → C.9E 13:40 → C.6T 14:58
PROVIDERS: ADMIT Internal Medicine Cardiovascular Disease; ATTEND Internal Medicine Cardiovascular Disease
DX: G40.909 Epilepsy, unspecified, not intractable, without status epilepticus (principal); E78.5 Hyperlipidemia, unspecified; I12.0 Hypertensive chronic kidney disease with stage 5 chronic kidney disease or end stage renal disease; N18.6 End stage renal disease; Z99.2 Dependence on renal dialysis; Z79.899 Other long term (current) drug therapy; Z94.0 Kidney transplant status; D63.1 Anemia in chronic kidney disease; E03.9 Hypothyroidism, unspecified; E87.1 Hypo-osmolality and hyponatremia; G35 Multiple sclerosis; C71.9 Malignant neoplasm of brain, unspecified
CPT/HCPCS: 36415; 70450; 80048; 80053; 80177; 82948; 83935; 84300; 85025; 96361; 96365; 96372; 97116; 97162; 99285; G0378; G0480; G8978; G8979; J1644; J7030; J7507